=== PATIENT | female | born 1985 | race Caucasian/White ===

== ENCOUNTER 2023-01-30 08:47 | Day surgery (SDC) | payer OTHER, SELFPAY ==
[2023-01-30] VITALS (13 sets, daily range): BP systolic 111–139; BP diastolic 74–96; PULSE 63–82; RESP 16–20; TEMP 36.1–36.7; O2SAT 97–100; BMI 25.9
[2023-01-30] MEDS: SODIUM CHLORIDE 0.9 % (FLUSH) 10 ML SYRINGE IVF (09:33)
[2023-01-30] MEDS: LACTATED RINGERS 1000 ML 1,000 ML 100 ML IV (09:33)
[2023-01-30] MEDS: OXYMETAZOLINE (AFRIN) SOAK 1 EACH TOPICAL (09:34)
--- NOTE | 2023-01-30 10:10 | W.ANESCHARGE ---
Anesthesia Charges Start Date/Time Anesthesia Start Date: 01/30/23 Anesthesia Start Time: 10:41 Stop Date/Time Anesthesia Stop Date: 01/30/23 Anesthesia Stop Time: 11:14
[2023-01-30] MEDS: COCAINE HCL 4 % 4 ML SOLUTION NOSTRIL-B (10:50)
[2023-01-30] MEDS: AYR SALINE NASAL GEL 1 APPLIC NOSTRIL-B (10:52)
[2023-01-30] MEDS: BUPIVACAINE 0.5 %/EPI 1:200K 30 ML INJECTION (10:52)
--- NOTE | 2023-01-30 11:05 | W.PM.ENTPROC ---
Procedure Note Date of procedure: 01/30/23 Procedure: Preoperative diagnosis nasal obstruction, inferior turbinate hypertrophy, uvular hypertrophy causing gagging Postoperative diagnosis same Procedure trim uvula, submucous partial resection inferior turbinates Under general trach anesthesia patient was prepped and draped in usual fashion nose decongested and the inferior turbinates injected. The McIvor mouth gag was inserted the tongue retracted forward. The membranous portion of the uvula was amputated with a needlepoint cautery. After regarding attention was turned to the nose. The in a stab incision was made in the anterior head of the right inferior turbinate and a tunnel created with a Miesha dissector. The ruiz bone was outfractured and conservative anterior submucous resection performed. The Coblation Wand was used for hemostasis and to cauterize along the inferior 10%. This was repeated on the left side in identical fashion. Cotton balls were placed in the nose on each side. The patient procedure well was taken recovery in satisfactory condition. Blood loss was less than 10 mL. Surgeon: Alejo Connors MD
--- NOTE | 2023-01-30 11:14 | W.ANESCHARGE ---
Anesthesia Charges Start Date/Time Anesthesia Start Date: 01/30/23 Anesthesia Start Time: 10:41 Stop Date/Time Anesthesia Stop Date: 01/30/23 Anesthesia Stop Time: 11:14
--- NOTE | 2023-01-30 11:46 | SUR.PHASEI ---
patient met discharge criteria per anesthesia
[2023-01-30] MEDS: IBUPROFEN 200 MG TABLET PO ×2 (11:53)
[2023-01-30] MEDS: ACETAMINOPHEN 325 MG TABLET PO ×2 (11:53→11:58)
[2023-01-30] MEDS: OXYCODONE 5 MG TABLET PO (12:12)
== END 2023-01-30 13:00 | disposition home or self-care (01) ==
LOC: OR 08:51
PROVIDERS: Visit Provider Otolaryngology
PROC: (CPT 30520; principal; 2023-01-30 10:15)
PROC: (CPT 42140; 2023-01-30 10:15)
DX: J34.3 Hypertrophy of nasal turbinates (principal); J34.89 Other specified disorders of nose and nasal sinuses; K13.79 Other lesions of oral mucosa
CPT/HCPCS: 42140; 30140; 160; 170; 81025; A9270; J0330; J1100; J2250; J2405; J2704; J3010; J3490; J7120

== ENCOUNTER 2024-04-13 08:18 | Emergency (ER) | payer OTHER, SELFPAY ==
--- OUTSIDE RECORDS SUMMARY | 2024-04-13 08:20 | XMS_ITS | Referral Summary ---
Author Organization [place] Address [address] [place] [id number] Care Team Providers Care Water Chemist Name Role Phone [facility] Unavailable Allergies No known active allergies Medications valACYclovir (VALTREX) 1000 MG tabletIndicatio ns:Herpes simplex virus infection [VALACYCLOVIR (VALTREX) 1000 MG TABLET] TAKE TWO TABLETS BY MOUTH TWICE DAILY FOR 2 DAYS 8 tablet 11 1 Active desvenlafaxine (PRISTIQ) 50 MG 24 hr tablet Take 50 mg by mouth daily 1 Active amoxicillin-cla vulanate (AUGMENTIN) 875-125 MG tablet Take 1 tablet every 12 hours by oral route for 7 days. 2 Active azithromycin (ZITHROMAX) 250 MG tablet azithromycin 250 mg tablet Take 2 tablets (500 mg) by mouth daily for 1 day, THEN 1 tablet (250 mg) daily for 4 days. 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 Plan: cotest in 3 years 04/28/21 NIL pap, +HR HPV (not 16/18). Plan: cotest in 1 year 05/08/21 Mychart results sent 05/15/21 Result letter sent 10/27/21 NIL Pap, Neg HR HPV Plan cotest in 3 years. Resolved Problems Problem Noted Date Diagnosed Date Resolved Date Vasospasm 10/10/2020 10/10/2020 Encounter for IUD insertion 10/02/2018 08/26/2019 (normal spontaneous vaginal delivery) 08/22/2018 10/06/2018 08/21/2018 10/06/2018 test positive 12/25/201709/16 Immunizations Name Administration Dates Next Due COVID-19 Bivalent 12+ (Pfizer) 03/16/2022 Flu, Unspecified 03/01/2021, 0,04/06/2019,2017,03/11/2017 Influenza Vaccine >6 months,quad, PF ,03/01/2021,03/09/2020,2018,03/07/2018,03/11/2017 TDAP (Adacel,Boostrix) 07/12/2021,06/18/2018 TDAP Vaccine (Boostrix) 06/18/2018 Social History Tobacco Use Types Packs/Day Years Used Date Smoking Tobacco: Never Smokeless Tobacco: Never Alcohol Use Standard Drinks/Week Comments Yes 4 (1 standard drink = 0.6 oz pur e alcohol) 7 drinks per week PHQ-2 Answer Date Recorded PHQ-2 Score 1 09/28/2021 [place] Depression Scale Answer Date Recorded [place] Depression Score 6 09/28/2021 Last EPDS Self Harm Result Not on file 09/28 Adolescent Education Answer Date Record ed Getting School Help Needed Not on file 03/09 Comments No Sex and Gender Information Value Date Recorded Sex Assigned at Not on file Legal Sex Female 7:28 AM CDT Gender Identity Not on file Sexual Orientation Not on file Last Filed Vital Signs Vital Sign Reading Time Taken Comments Blood Pressure 111/80 12/29/2022 11:15 AM CDT Pulse 70 12/29/2022 11:15 AM CDT Temperature 36.3 ??C (97.3 ??F) 12/29/2022 9:58 AM CD T Respiratory Rate 15 12/29/2022 11:15 AM CDT Oxygen Saturation 98% 12/29/2022 11:15 AM CDT Inhaled Oxygen Concentration - - Weight 65.8 kg (145 lb) 12/29/2022 9:55 AM CDT Height 157.5 cm (5' 2) 12/29/2022 9:55 AM CDT Body Mass Index 26.52 12/29/2022 9:55 AM CDT Plan of Treatment Not on file Medical Devices Implanted Type Area Retail Client Solutions Analyst Device Identifier Shelf Expiration Date Model / Serial / Lot Sling Y Mesh Restorelle Contour 3x24cm [id number] - [id number] Implanted:Qty: 1 on 11/08/2021 by Aneesh Anguiano MD at [facility] Mesh N/A: Pelvis COLOPLAST [id number] 06/01/2024 [id number] / / [id number] Procedures Procedure Name Priority Date/Time Associated Diagnosis Comments BASIC METABOLIC PANEL STAT 12/29/2022 11:18 AM CDT HPV HIGH RISK TYPES DNA CERVICAL Routine 10/27/2021 11:15 AM CDT Routine follow-up GYNECOLOGIC CYTOLOGY Routine 10/27/2021 11:15 AM CDT Routine follow-up HIV ANTIGEN ANTIBODY COMBO Routine 03/01/2021 3:48 PM CDT Encounter for supervision of other normal in first trimester HEPATITIS C ANTIBODY Routine 02/07/2018 4:37 PM CDT from Last 3 Months or Most Recently Relevant to Health Maintenance Results * Basic metabolic panel (12/29/2022 11:18 AM CDT) Sodium 137 136 - 145 mmol/L 12/29/2022 12:00 PM CDT LABORATORY Potassium 4.0 3.4 - 5.3 mmol/L 12/29/2022 12:00 PM CDT LABORATORY Chloride 104 98 - 107 mmol/L 12/29/2022 12:00 PM CDT LABORATORY Carbon Dioxide (CO2) 23 22 - 29 mmol/L 12/29/2022 12:00 PM CDT LABORATORY Anion Gap 10 7 - 15 mmol/L 12/29/2022 12:00 PM CDT LABORATORY Urea Nitrogen 11.0 6.0 - 20.0 mg/dL 12/29/2022 12:00 PM CDT LABORATORY Creatinine 0.81 0.51 - 0.95 mg/dL 12/29/2022 12:00 PM CDT LABORATORY Calcium 9.0 8.6 - 10.0 mg/dL 12/29/2022 12:00 PM CDT LABORATORY Glucose 98 70 - 99 mg/dL 12/29/2022 12:00 PM CDT LABORATORY GFR Estimate >90 >60 mL/min/1.7 3m2 12/29/2022 12:00 PM CDT LABORATORY Blood STRUCTURE OF RIGHT UPPER LIMB / Unknown Venipuncture / Unknown 12/29/2022 11:18 AM CDT 12/29/2022 11:28 AM CDT us Lalito Mackenzie MD LAB - BLOOD ORDERABLES Final Result LABORATORY [facility] [address] Lab (1st floor, no room number) [place] [address], [facility] [phone] * Pap screen with HPV - recommended age 30 - 65 years (10/27/2021 11:15 AM CDT) Interpretation Negative for Intraepithelial Lesion or Malignancy (NILM) 11/06/2021 1:57 PM CDT [facility] Comment Papanicolaou Test Limitations: Cervical cytology is a screening test with limited sensitivity, and regular screening is critical for cancer prevention. Pap tests are primarily effective for the diagnosis/prevent ion of squamous cell carcinoma, not adenocarcinoma or other cancers. 11/06/2021 1:57 PM CDT [facility] Specimen Adequacy Satisfactory for evaluation, endocervical/dominguez sformation zone component present 11/06/2021 1:57 PM CDT [facility] Clinical Information post- 11/06/2021 1:57 PM CDT [facility] Reflex Testing Yes regardless of result 11/06/2021 1:57 PM CDT [facility] Previous Abnormal? Yes 11/06/2021 1:57 PM CDT [facility] Previous Abnormal Diagnosis 10/03, +HPV 11/06/2021 1:57 PM CDT [facility] Performing Labs The technical component of this testing was completed at [facility] 11/06/2021 1:57 PM CDT [facility] Brushing CERVIX UTERI STRUCTURE / Unknown 10/27/2021 11:15 AM CDT 10/27/2021 11:58 AM CDT us Lakeisha OTT - GARRETT RODARTE Final Result [facility] [address] [phone] * HPV High Risk Types DNA Cervical (10/27/2021 11:15 AM CDT) Other HR HPV Negative Negative 10/31/2021 3:49 PM CDT [facility] HPV16 DNA Negative Negative 10/31/2021 3:49 PM CDT [facility] HPV18 DNA Negative Negative 10/31/2021 3:49 PM CDT [facility] FINAL DIAGNOSIS This patient's sample is negative for HPV DNA. This test was developed and its performance characteristics determined by the [facility]. It has not been cleared or approved by the FDA. The laboratory is regulated under CLIA as qualified to perform high-complexity testing. This test is used for clinical purposes. It should not be regarded as investigational or for research. METHODOLOGY: The Dolores Champ 4800 system uses automated extraction, simultaneous amplification of HPV (L1 region) and beta-globin, followed by real time detection of fluorescent labeled HPV and beta globin using specific oligonucleotide probes. The test specifically identified types HPV 16 DNA and HPV 18 DNA while concurrently detecting the rest of the high risk types (31, 33, 35, 39, 45, 51, 52, 56, 58, 59, 66 or 68). COMMENTS: This test is not intended for use as a screening device for woman under age 30 with normal cervical cytology. Results should be correlated with cytologic and histologic findings. Close clinical followup is recommended. 10/31/2021 3:49 PM [facility] Brushing CERVIX UTERI STRUCTURE / Unknown Non-blood Collection / Unknown 10/27/2021 11:15 AM CDT 10/30/2021 8:28 AM CDT Lakeisha Terry MD LAB - BLOOD ORDERABLES Final R esult [facility] [address] [facility], [address] [address], [facility] [phone] * HIV Antigen Antibody Combo (03/01/2021 3:48 PM CDT) HIV Antigen Antibody Combo Negative Negative 03/01/2021 11:47 PM CDT [facility] Blood STRUCTURE OF LEFT UPPER LIMB / Unknown Venipuncture / Unknown 03/01/2021 3:48 PM CDT 03/01/2021 3:57 PM CDT Lakeisha Terry MD LAB - BLOOD ORDERABLES Final R esult [facility] [address] [address], [facility] [phone] * Hepatitis C antibody (02/07/2018 4:37 PM CDT) Hepatitis C Antibody Negative Negative 02/10/2018 8:05 AM CDT [facility] Blood specimen (specimen) Venipuncture / Unknown 02/07/2018 4:37 PM CDT 02/07/2018 7:28 PM CDT Lakeisha Terry MD LAB - BLOOD ORDERABLES Final R esult Performing Organization Address City/State/[facility] Co de Phone Number [facility] [address] [address], [facility] [address] [address] from Last 3 Months or Most Recently Relevant to Health Maintenance Insurance [facility] CHO[facility] CHO[facility] Advance Directives For more information, please contact: [phone] * Full Code (Latest Code Status on File) Date Activated Date Inactivated Comments 09/10/2021 1:09 PM 09/11/2021 3:16 PM All basic an d advanced life-sustaining interventions are performed as appropriate Question Answer Comments Code status determined by: Discussion with patie nt/ legal decision maker * Full Code Date Activated Date Inactivated Comments 09/09/2021 5:47 PM 09/10/2021 1:09 PM All basic an d advanced life-sustaining interventions are performed as appropriate Question Answer Comments Code status determined by: Unable to det ermine; FULL CODE until documents or legal decision maker available Care Teams Water Chemist Relationship Specialty Start Date End Date [facility] - [address], [address] [address] Assigned PCP 07/11/23
--- OUTSIDE RECORDS SUMMARY | 2024-04-13 08:20 | XMS_ITS | Clinical Summary ---
Author Organization [place] Address [address] [place] [address] Care Team Providers Care Ladle Handler Name Role Phone [facility] Unavailable Allergies No known active allergies Medications [...] TDAP (Adacel,Boostrix) 07/12/2021,06/18/2018 TDAP Vaccine (Boostrix) 06/18/2018 Family History Medical History Relation Comments No Known Problems Brother No Known Problems Father Heart Disease Maternal Grandfather Other Cancer Maternal Grandfather Follicular lymphoma Coronary Artery Disease Maternal Grandmother Endometrial Cancer Maternal Grandmother Hypothyroidism Maternal Grandmother Other Cancer Maternal Grandmother Endometrial Thyroid Disease Maternal Grandmother Hypothyroid Hypothyroidism Mother Thyroid Disease Mother Hypothyroid Cancer Paternal Grandmother No Known Problems Sister Relation Status Comments Brother Alive Father Alive Maternal Grandfather Alive Maternal Grandmother Alive Mother Alive Paternal Grandfather (Age 30) Paternal Grandmother Alive Sister Alive Social History Tobacco Use Types Packs/Day Years Used Date Smoking Tobacco: Never Smokeless Tobacco: Never Alcohol Use Standard Drinks/Week Comments Yes 4 (1 standard drink = 0.6 oz pur e alcohol) 7 drinks per week PHQ-2 Answer Date Recorded PHQ-2 Score 1 09/28/2021 [place] Depression Scale Answer Date Recorded [place] Depression Score 6 09/28/2021 Last EPDS Self [...] 12/29/2022 9:55 AM CDT Plan of Treatment Health Maintenance Due Date Last Done Comments ANNUAL REVIEW OF HM ORDERS 1986 HEPATITIS B IMMUNIZATION (1 of 3 - 19+ 3-dose series) 2005 PHQ-2 (once per calendar year) 2023 09/28/2021, 08/09/2020, 08/09/2020, Additional history exists YEARLY PREVENTIVE VISIT 09/27/2023 09/27/19, 03/09/2020, 03/09/2020, Additional history exists COVID-19 Vaccine ( season) 2024 03/16/2022, 03/21/2021, 06/24/2020, Additional history exists INFLUENZA VACCINE (#1) 2024 , 03/01/2021, 03/01/2021, Additional history exists HPV FOLLOW-UP 10/27/2024 10/27/2021, 04/17, 03/18/2020, Additional history exists PAP FOLLOW-UP 10/27/2024 10/27/2021, 04/17, 03/18/2020, Additional history exists GLUCOSE 12/29/2025 12/29/2022, 09/2021, 03/09/2020, Additional history exists ADVANCE CARE PLANNING 10/27/2026 10/27/2021 DTAP/TDAP/TD IMMUNIZATION (4 - Td or Tdap) 07/12/2031 07/12/2021, 06/18/2018, 06/18/2018 RSV VACCINE (1 - 1-dose 75+ series) 2061 HEPATITIS C SCREENING Completed 02/07/2018 HIV SCREENING Completed 03/01/2021, 02/07/2018 PAP Discontinued 10/27/2021, 04/17, 03/18/2020, Additional history exists HPV IMMUNIZATION Aged Out No longer e ligible based on patient's age to complete this topic MENINGITIS IMMUNIZATION Aged Out No l onger eligible based on patient's age to complete this topic Pneumococcal Vaccine: Pediatrics (0 to 5 Years) and At-Risk Patients (6 to 64 Years) Aged Out No longer eligible based on patient's age to complete this topic RSV MONOCLONAL ANTIBODY Aged Out No l onger eligible based on patient's age to complete this topic Medical Devices Implanted Type Area Hand Lacer Device Identifier Shelf Expiration Date Model / Serial / Lot Sling Y Mesh Restorelle Contour 3x24cm [id number] - [id number] Implanted:Qty: 1 on 11/08/2021 by Aneesh Anguiano MD at [facility] Mesh N/A: Pelvis COLOPLAST [id number] 06/01/2024 [id number] / / [id number] Procedures Procedure Name Priority Date/Time Associated Diagnosis [...] - 145 mmol/L 12/29/2022 12:00 PM CDT [facility] Potassium 4.0 3.4 - 5.3 mmol/L 12/29/2022 12:00 PM CDT [facility] Chloride 104 98 - 107 mmol/L 12/29/2022 12:00 PM CDT [facility] Carbon Dioxide (CO2) 23 22 - 29 mmol/L 12/29/2022 12:00 PM CDT [facility] Anion Gap 10 7 - 15 mmol/L 12/29/2022 12:00 PM CDT [facility] Urea Nitrogen 11.0 6.0 - 20.0 mg/dL 12/29/2022 12:00 PM CDT [facility] Creatinine 0.81 0.51 - 0.95 mg/dL 12/29/2022 12:00 PM CDT [facility] Calcium 9.0 8.6 - 10.0 mg/dL 12/29/2022 12:00 PM CDT [facility] Glucose 98 70 - 99 mg/dL 12/29/2022 12:00 PM CDT [facility] GFR Estimate >90 >60 mL/min/1.7 3m2 12/29/2022 12:00 PM CDT [facility] Blood STRUCTURE OF RIGHT UPPER LIMB / Unknown Venipuncture / Unknown 12/29/2022 11:18 AM CDT 12/29/2022 11:28 AM CDT us Lalito Mackenzie MD LAB - BLOOD ORDERABLES Final Result LABORATORY [facility] [address] Lab (1st floor, no room number) [place] [address], [facility] [phone] * Pap screen with HPV - recommended [...] component of this testing was completed at [facility] 11/06/2021 1:57 PM CDT [facility] Brushing CERVIX UTERI STRUCTURE / Unknown 10/27/2021 11:15 AM CDT 10/27/2021 11:58 AM CDT us Lakeisha Terry MD LAB - BEAKER AP Final Result [facility] [address] [place] [address], [facility] [phone] * HPV High Risk Types DNA Cervical (10/27/2021 11:15 AM CDT) Other HR HPV Negative Negative 10/31/2021 3:49 PM CDT [facility] HPV16 DNA Negative Negative 10/31/2021 3:49 PM CDT [facility] HPV18 DNA Negative Negative 10/31/2021 3:49 PM [facility]T [facility] FINAL DIAGNOSIS This patient's sample is negative for HPV DNA. This test was developed and its performance characteristics determined by the [facility], [facility]. It has not been [...] followup is recommended. 10/31/2021 3:49 PM CDT [facility] Brushing CERVIX UTERI STRUCTURE / Unknown Non-blood Collection / Unknown 10/27/2021 11:15 AM CDT 10/30/2021 8:28 AM CDT us Lakeisha Terry MD LAB - BLOOD ORDERABLES Final R esult [facility] [employer] [facility] [address] [facility], Room [address] [place] [address], [facility] [phone] * HIV Antigen Antibody Combo (03/01/2021 3:48 PM CDT) Pathologist [facility] HIV Antigen Antibody Combo Negative Negative 03/01/2021 11:47 PM CDT [facility] Blood STRUCTURE OF LEFT UPPER LIMB / Unknown Venipuncture / Unknown 03/01/2021 3:48 PM CDT 03/01/2021 3:57 PM CDT us Lakeisha Terry MD LAB - BLOOD ORDERABLES Final R esult Performing Organization Address City/[facility]/ZIP Co de Phone Number [facility] [address] [address], [facility] [phone] * Hepatitis C antibody (02/07/2018 4:37 PM CDT) [facility] Hepatitis C Antibody Negative Negative 02/10/2018 8:05 AM CDT [facility] Blood specimen (specimen) Venipuncture / Unknown 02/07/2018 4:37 PM CDT 02/07/2018 7:28 PM CDT us Lakeisha Terry MD LAB - BLOOD ORDERABLES Final R esult Performing Organization Address [facility] Co de Phone Number [facility] [address] [address], [facility] [address] [place] [address] from Last 3 Months or Most Recently Relevant to Health Maintenance Insurance [facility] CHOICE [id number] [id number] [facility] CHOICE Advance Directives For more information, please contact: [phone] * Full Code (Latest Code Status on [...] or legal decision maker available Care Teams Ladle Handler Relationship Specialty Start Date End Date [facility] - [address], [address] [facility] [place], [place] [id number] Assigned PCP 07/11/23
--- OUTSIDE RECORDS SUMMARY | 2024-04-13 08:21 | XMS_ITS | Encounter Summary ---
Author Organization [place] Address [address] [place] [address] Care Team Providers Care Condenser Tube Tender Name Role Phone Lakeisha Terry MD Primary Care Provider Unavail able Lakeisha Terry MD Unavailable Unavailable Kelle Espinoza MD Unavailable Unavaila Kelle Salas MD Unavailable [phone] Neelam Lunsford MD Unavailable [phone] Lakeisha Terry MD Unavailable Unavailable Lakeisha Terry MD Unavailable Unavailable [facility] Unavailable Encounter Details Date Type Department Care Team (Late st Contact Info) Description 01/17/2021 [facility] [address] [place] [address] Lakeisha Terry MD XXX NO LONGER WITH [facility] CANNOT LOCATE XXX Social History Tobacco Use Types Packs/Day Years Used Date Smoking Tobacco: Never Smokeless Tobacco: Never Alcohol Use Standard Drinks/Week Comments Yes 4 (1 standard drink = 0.6 oz pur e alcohol) PHQ-2 Answer Date Recorded PHQ-2 Score 0 08/09/2020 Comments Unknown Sex and Gender Information Value Date Recorded Sex Assigned at Not on file Legal Sex Female 7:28 AM CDT Gender Identity Not on file Sexual Orientation Not on file documented as of this encounter Plan of Treatment Not on file documented as of this encounter Visit Diagnoses Not on filedocumented in this encounter Additional Health Concerns Infection Onset Date Last Indicated Resolved Time Rule Out COVID-19 05/02/2021 05/02/2021 05/02/2021 8:03 PM SLUG PRESS OPERATOR Rule Out COVID-19 06/28/2021 06/28/2021 06/28/2021 11:19 PM SLUG PRESS OPERATOR COVID-19 06/28/2021 06/28/2021 07/19/2021 11:3 9 PM SLUG PRESS OPERATOR Assessment Noted Time PHQ-9 Depression Total Score: 0 11/11/19 5:01 PM CDT documented as of this encounter Care Teams Condenser Tube Tender Relationship Specialty Start Date End Date Lakeisha Terry MD PCP - General Family Medicine 04/30/20 07/18/23 Lakeisha Terry MD XXX NO LONGER WITH [facility] CANNOT LOCATE XXX Assigned PCP 11/30/20 03/02/22 Kelle Espinoza MD Assigned OBGYN Provider 04/30/21 08/19/21 Kelle Disla MD [address] [place] [address] Assigned OBGYN Provider 08/20/21 Neelam Lunsford MD [address] [place] [address] Assigned PCP 03/03/22 02/01/23 Lakeisha Terry MD XXX NO LONGER WITH [facility] CANNOT LOCATE XXX Assigned PCP 02/02/23 05/24/23 Lakeisha Terry MD XXX NO LONGER WITH [facility] CANNOT LOCATE XXX Assigned PCP 06/01/23 07/10/23 [facility] - [address], [address] [place] [address] Assigned PCP 07/11/23 documented as of this encounter
--- OUTSIDE RECORDS SUMMARY | 2024-04-13 08:21 | XMS_ITS | Encounter Summary ---
Author Organization [facility] Address [address] [place] [id number] Care Team Providers Care Injection Molding Machine Tender Name Role Phone Lakeisha Terry MD Primary Care Provider Unavail able Lakeisha Terry MD Primary Care Provider Unavail able Lakeisha Terry MD Unavailable Unavailable Kelle Espinoza MD Unavailable Unavaila Kelle Salas MD Unavailable [phone] Neelam Lunsford MD Unavailable [phone] Lakeisha Terry MD Unavailable Unavailable Lakeisha Terry MD Unavailable Unavailable Clinic - [facility] [place] Unavailable Encounter Details Date Type Department Care Team (Late st Contact Info) Description 10/21/2018 Records - [facility] Midwifery [address] [place] [id number] Waleska Knight [address] [place] [id number] Social History Tobacco Use Types Packs/Day Years Used Date Smoking Tobacco: Never Assessed Comments Unknown Sex and Gender Information Value Date Recorded Sex Assigned at Not on file Legal Sex Female 7:28 AM CDT Gender Identity Not on file Sexual Orientation Not on file documented as of this encounter Last Filed Vital Signs Vital Sign Reading Time Taken Comments Blood Pressure - - Pulse - - Temperature - - Respiratory Rate - - Oxygen Saturation - - Inhaled Oxygen Concentration - - Weight 70.6 kg (155 lb 9.6 oz) 10/21/2018 8:52 A M CDT Height 157.5 cm (5' 2) 10/21/2018 8:52 AM CDT Body Mass Index 28.46 10/21/2018 8:52 AM CDT documented in this encounter Progress Notes * Waleska KnightALEXEYSury - 10/21/2018 9:00 AM CDT Assessment: 1. 9 week old infant gaining weight very well on exclusive (1 oz/day over last 2 weeks) 2. Multifactorial nipple pain: Baby with tendency to draw lower lip in during feedings, vasospasm with incomplete relief from Vitamin B6, ? Possible yeast 3. Good milk transfer 4. Good milk supply Plan: 1. Discussed attaining optimal latch: To present breast in the sandwich hold, compressing breast vertically and in line with baby's mouth, for baby to get a larger mouthful of breast and a deeper latch. Use a finger to flip out his lower lip if needed as well. If there is feel pinching or pain, stop, use a finger to break the suction, remove baby from the breast and try again until there is no p ain with nursing. There is sometimes a little pain when the baby first begins sucking, but after the first few seconds there should be no pain--only a tugging feeling. Do not continue with the same position if nursing is painful; Always restart! 2. Make certain to be well-positioned for nursing, with feet elevated and Nghia up high enough to get enough breast in his mouth to have a deep latch. 3. Use All-Purpose Nipple Ointment after nursing sessions. Rx transmitted to pharmacy, and given written info. 4. Try nifedipine for two weeks for nipple vasospasm--Rx for 30 mg sustained release tab once dailyX 2 weeks sent to pharmacy. 5. See Dr. Terry tomorrow as planned, and will follow up by [facility] to re-assess. Subjective: Anel is here today for a follow up visit for nipple pain. At first visit about a month ago diagnosed with likely nipple vasospasm and used Vitamin B6 which was initiallyvery helpful, however in last 2 days has become much worse again. Is somewhat painful during nursing, but last night pain was so intense after completion of nursing session that she required ibuprofen to manage pain. Ibuprofen did give relief. Heat is helpful Also notes that nipples are bright pink, sometimes have lipstick appearance and look a little purplish. Additionally, did have a period of time few daysago where, during a trip where she did more pumping/bottling, baby refused the breast for 2 days, bu t that is now resolved. Goals: Continued exclusive Previous Experience: none Infants name: Nghia Lazaro's bday: [birth year] Gestational age: 38w6d Infant's weight: 8# 4 oz Mode of delivery: vaginal Infants MD: Dr. Terry Discharge weight: 7# 13 oz; Last weight at visit 9# 12.2 oz Frequency and duration of feedings: every 1-5 hours, for 10 Swallows audible per mother: yes Numbers of feedings in 24 hours: 6 Number urines per day: 12 Number of stools per day and their color: 2-4, large, green, yellow or brown Supplementation: none Pumping: about once daily for convenience, obtains 2-5 oz depending on timing of pumping Objective/Physical exam: Mother: Noticed breasts grew larger and areolas darkened during and she noticed primary engorgement when her milk came in. Her nipples are everted, the areola is compressible, the breast is soft and full. Sore nipples: yes EPDS: not completed today Assessment of : 45.91% Weight for age percentile Age today: 9 1/2 weeks Today's weight: 9# 12.2 oz Amount of milk transferred from LEFT side: 1.2 oz Amount of milk transferred from RIGHT side: 1.6 oz Baby has full flexion of arms and legs, normal tone, behavior is alert and active, respirations arenormal, skin is normal, hydration is normal, jaw is normal size and alignment, palate is normal, frenulum is normal, baby can lateralize tongue, has adequate tongue lift, and tongue can protrude tongue past bottom gum line. Baby thrush: none Jaundice: none Feeding assessment: Baby can hold suction with tongue while at the breast Alignment: The baby was flex relaxed. Baby's head was aligned with its trunk. Baby did face mother.Baby was in cross cradle position today. Areolar Grasp: Baby was able to open mouth somewhat widely. Baby's lips were not pursed. Baby's lower lip did not initially flange outward on first breast--gentle pressure on chin used to bring lip outwards. Tongue was not clearly visible just barely over bottom lip. Baby had complete seal. Areolar Compression: Baby made rhythmic motion. There were no clicking or smacking sounds. There was no severe nipple discomfort. Nipples appeared rounded after feeding. Both nipples appeared bright pink after feeding, and left nipple with a few raised dots. Also a little bit of purplish spots of discoloration noted. Audible swallowing: Baby made quiet sounds of swallowing: There was an increase in frequency after milk ejection reflex. The milk ejection reflex is normal and milk supply is normal. Current Outpatient Medications: ??? cyanocobalamin 100 MCG tablet, Take 100 mcg by mouth daily., Disp: , Rfl: ??? lanolin (LANSINOH HPA) 100 % Oint, Apply as needed, Disp: , Rfl: 0 ??? vitamin iron-folic acid 27mg-0.8mg ( S) 27 mg iron- 800 mcg Tab tablet, Take 1tablet by mouth daily., Disp: , Rfl: Past Medical History: Diagnosis Date ??? Abnormal Pap smear of cervix ??? HPV (human papilloma virus) infection ??? Insomnia ??? (normal spontaneous vaginal delivery) 08/22/2018 Past Surgical History: Procedure Laterality Date ??? LASIK Bilateral ??? WISDOM TOOTH EXTRACTION Family History Problem Relation Age of Onset ??? Hypothyroidism Mother ??? No Medical Problems Father ??? No Medical Problems Sister ??? No Medical Problems Brother ??? Endometrial cancer Maternal Grandmother ??? Hypothyroidism Maternal Grandmother ??? Coronary artery disease Maternal Grandmother ??? Heart disease Maternal Grandfather ??? Cancer Paternal Grandmother BP 102/60 Pulse 60 Ht 5' 2 (1.575 m) Wt 155 lb 9.6 oz (70.6 kg) ? Yes BMI 28.46 kg/m?? TT 45 min >50% counseling and education Waleska Knight APRN, PIO, IBCLC documented in this encounter Miscellaneous Notes * Patient Instructions - HE - Waleska Knight CNM - 10/21/2018 9:00 AM CDT 1. Present breast in the sandwich hold, compressing breast vertically and in line with baby's mouth, for baby to get a larger mouthful of breast and a deeper latch. Use a finger to flip out his lower lip if needed as well. If there is feel pinching or pain, stop, use a finger to break the suction, remove baby from the breast and try again until there is no pain with nursing. There is sometimes a little pain when the baby first begins sucking, but after the first few seconds there should be nopain--only a tugging feeling. Do not continue with the same position if nursing is painful; Always restart! 2. Make certain to be well-positioned for nursing, with feet elevated and Nghia up high enough to get enough breast in his mouth to have a deep latch. 3. Use All-Purpose Nipple Ointment after nursing sessions. 4. Try nifedipine for two weeks for nipple vasospasm. 5. See Dr. Terry tomorrow as planned, and [facility]. All Purpose Nipple Ointment (APNO), adapted from Dr. Alexandru Feng's website Most 24 hour Ampulse stores are compounding pharmacies. 1-15 on this list are 24 hour [facility] stores. The cost can sometimes be between $90-$125. If you find that with your insurance it is unaffordable, *please let us know* and we can discuss an alternative! It can take up to 24 hours to make APNO. We call our nipple ointment ???all purpose?? since it contains ingredients that help deal with multiple causes or aggravating factors of sore nipples. ???Good medicine?? calls for the single ???right?? treatment for the ???right?? problem, true enough, but mothers with sore nipples don???t havetime to try out different treatments that may or may not work, so we have combined various treatments in one ointment. Of course, preventing sore nipples in the first place would be the best treatment and often adjusting how the baby takes the breast can do more than anything to decrease and eliminate the mother???s nipple soreness The APNO contains: Mupirocin 2% ointment. Mupirocin (Bactroban is the trade name) is an antibiotic that is effective against many bacteria, particularly Staphylococcus aureus including MRSA (methicillin resistant Staphylococcus aureus). Staphylococcus aureus is commonly found growing in abrasions or cracks in the nipples and probably makes worse whatever the initial cause of sore nipples is. Interestingly, mupirocin apparently has some effect against Sophie albicans (commonly called ???thrush?? or ???yeast?? ). Treatment of sore nipples with an antibiotic alone sometimes seems to work, but we feel that the antibiotic works best in combination with the other ingredients discussed below. Although mupirocin isabsorbed when taken by mouth, it is so quickly metabolized in the body that it is destroyed before blood levels can be measured. Moreover most of it gets stuck to the skin so that very little is taken in by the baby. Thus it is safe for the baby to swallow if indeed he gets any. Betamethasone 0.1% ointment. Betamethasone is a corticosteroid, which like all corticosteroids, decreases inflammation. A large part of the pain mothers experience when they have sore nipples is due to inflammation. The redness of the nipples and areolas is another sign of inflammation. By decreasing the inflammation, the APNO also decreases the pain the mother feels. Most of the betamethasone inthe ointment is absorbed into the skin by the mother, so that the baby takes in very little. Miconazole powder: Miconazole is an antifungal agent. It is very effective against Sophie albicans. We feel the concentration of 2% miconazole is a good one, but because the pharmacist adds a powderto the above two ingredients, s/he can change the concentration of miconazole so that it can be increased to 3% or even 4% or decreased to less than 2%. We feel 2% is the best concentration for most situations. Fluconazole powder to 2% may be substituted for miconazole and so can clotrimazole powder to 2%, but we believe that clotrimazole (Canesten) irritates more than the other drugs in the samefamily. Miconazole cream or gel cannot be substituted for miconazole powder as the compound will usually separate. If you live in a place where miconazole or any of the above mentioned drugs (fluconazole, clotrimazole) are not easily available as powders to be mixed into the APNO, it is probably better to use only the mupirocin and betamethasone ointments mixed together than add a cream or gel ornystatin ointment for example. By using a powder, the concentration of the other two ingredients is not as decreased as they wouldbe if another ointment were used for the anti-fungal agent (for example, nystatin ointment). Thus, in the above preparation the concentration of the betamethasone become 0.05% (due to combination with the mupirocin) and the mupirocin concentration is decreased to 1%. Note that nystatin ointment, which we used to use and which decreases the concentration of the other ingredients, is far inferior to miconazole and also tastes bad. NO SUBSTITUTIONS How do I use the ointment? Apply it sparingly after each feeding. ???Sparingly?? means that you apply just enough to make thenipples and areola glossy or shiny. Do not wash it off or wipe it off, even if the baby comes back to the breast earlier than expected. How long can I use the ointment? Somehow the ???word?? has gotten around to use the ointment for only two weeks. This is unfortunate since many mothers are getting so much better, but not pain free, by the time they believe they have to stop the ointment. Apparently pharmacists have said that the steroid in the ointment will cause ???thinning?? of the skin. This is a concern with any steroid one puts on the skin, but in our experience this has not occurred with our ointment and many mothers have used it for months. However, any drug should be used for the shortest period of time necessary, whether it???s taken bymouth or put on the skin or any other way it???s being given. The same is true for our ointment. There is no problem using the ointment for 2 or 3 or even more weeks, but if you still need the ointment after two or three weeks, or you pain returns after you have stopped it, you should get ???hands on?? help again to find out why and fix the way the baby is taking the breast, for example. Indeed,the most important feature of decreasing nipple pain is getting the best latch possible. Pres[facility] sent to: [facility] [place] [address] Phone Hours: Saturday- Saturday 9am- 5pm If the prescription All-Purpose Nipple Ointment is too expensive or difficult to obtain, you can use a lo-iw-xrrwdcok alternative with cvdo-rzs-xssgktc medications. Purchase: 1% hydrocortisone cream Antibiotic ointment (such as Bactroban or Bacitracin) Miconazole cream (an antifungal: Found with treatments for vaginal yeast, jock itch and athlete'sfoot) After each feeding, mix a dab of each in your palm and apply thinly to both nipples. You do not need to wash it off before the next feeding. After 2-3 days, you can stop including the hydrocortisone. Vasospasm and Raynaud???s Phenomenon by Dr. Alexandru Feng These conditions are due to a spasm of blood vessels preventing blood from getting to a particular area of the body, typically the end of an extremity, though not necessarily. They often occur in response to a drop in temperature. Raynaud???s phenomenon will occur in the fingers, for example, when someone goes outside from a warm house on a cool day. The fingers will turn white and the lack of blood getting to the tips of the fingers will cause pain. Raynaud???s phenomenon occurs more commonly in women than men, and can be often associated with ???auto-immune?? illnesses such as rheumatoid arthritis. Here, we will refer to both conditions as vasospasm. Vasospasm can also occur in nipples. In fact, it is much more common than generally believed. It can occur along with any cause of sore nipples, and is, in fact, probably a result of damage, but it may also, on occasion, occur without any other kind of nipple pain at all. Typically, vasospasm occurs after the feeding is over, once the baby is already off the breast. Presumably, the outside air is cooler than the inside of the baby???s mouth. When the baby comes off the breast, the nipple is its usual colour, but soon, within minutes or even seconds, the nipple will start to turn white. This is likely also due to drying of the nipple. Mothers generally describe a burning pain when the nipple turns white. After turning white for a while, the nipple may actually turn back to its normal colour (as blood starts to flow back to the nipple), and the mother will notice a throbbing pain. See the video clip of a mother???s nipple going from white to pink. The nipple may go back and forth between colours (and types of pain) for several minutes or even an hour or two.Sometimes, the mother does not even notice her nipple turning white and instead sees it change formpink to red to purple and back to pink again. That the nipple changes colour is not the concern; that the mother is in pain is a concern. Interestingly some mothers do not have pain with the vasospasm. The treatment for vasospasm is to fix the original cause of the pain (poor latch, Sophie). See theinformation sheets When Latching, Sophie Protocol and Sore Nipples as well as the video clips. Almost always, as the nipple soreness from another cause is getting better, so will the pain from the vasospasm, but more slowly. Fixing the original cause of the pain (improving the latch, treating Sophie etc) should be the focus of treatment. However, some mothers no longer have pain during the feeding, or never had it at all. Indeed, some start having vasospasm during the . If the pain is mild, there may be no reason to treat, and reassurance is all that is necessary. However, it is worth treating when the pain is distressing to the mother, and especially if the pain during the feeding does not improve, as severe restriction of blood supply to the nipple may delay healing. Treatments for Raynaud???s phenomenon (blanching of the nipple) Identify and Fix the original cause of the pain: i.e. Poor Latching and/or Sophie. Stop Air Drying of the nipples. When baby comes off the breast, immediately cover the nipple with your warm hand while you get your bra done up. After talking a shower, avoid going out of the shower enclosure until the breasts are completely covered and kept warmed so the cold air cannot reach the nipples. The All Purpose Nipple Ointment may also help for the soreness during the feeding, especially when ibuprofen powder has been mixed in. See the information sheets Sophie Protocol and All Purpose Nipple Ointment. [place] Oil Warming olive oil in mother???s fingers and then gently massaging the oil into the nipples during the burning may be very soothing. We have heard from many mothers that this gave them instant relief and seemed to decrease the occurrence of the vasospasm overall. It???s important that the oil be really massaged into the nipples and not just dabbed on Vitamin B6 Multi Complex. There have not yet been studies done to show that vitamin B6 works, but enough anecdotal evidence has come forward to support that it does work at least some of the time. Itis safe and will do no harm. It is best that B6 not be taken on its own but instead as part of a B complex of vitamins that includes niacin. Depending on the overall dose of the B complex, the amountof B6 itself should be approximately 100 mg 2x/day for at least a couple of weeks. So, for example,if the overall capsule is 125 mg of B complex and there is only 50 mg of B6 in that capsule, then mother would need to take 2 capsules at a time to equal one dose and that dose would need to be lcjci0i/day. The mother continues it until she is pain free for a few weeks. It can be restarted if necessary. If you have been pain free for a week or two, try going off the vitamin B6. If vitamin B6 does not work within a week, it probably won???t. Warm dry compresses can be very effective at stopping the vasospasm as it is occurring and for treating the pain. Lying down after a feeding and applying a heating pad to the breasts for a few minutes or more may help considerably. Certainly, it will allow mother to rest and this may help to deal with the pain, as well. Magnesium supplements with added Calcium taken as 2 teaspoons (300mg Magnesium/200 mg Calcium (gluconate), or taken separately: 2x daily or 300mg Magnesium 2x daily & 200mg of Calcium.) After working on the latch, possibly as effective as all of the above is the massaging of the chestmuscles which are below the collar bone and above the breasts after the feedings or at onset of nipple or breast pain. The massage should be very vigorous and firm and is done on the chest, not necessarily the breasts. The mother could also massage under the pectoral muscles, in her armpits, but this massage should be done gently. When this is not enough: Nifedipine. This is a drug used for hypertension. One 30 mg tablet of the slow release formulation once a day often takes away the pain of vasospasm. After two weeks, stop the medication. If pain returns (about 10% of mothers), start it again. After two weeks, stop the medication. If pain returns (a very small number of mothers), start it again. No mothers I am aware of took more than three, two week courses. Side effects are uncommon, but headache may occur. It is a prescription drug. The dosecan be increased if 1 tablet is insufficient. The nifedipine treatment may be used in conjunction with all of the other treatments listed above. Note: We no longer recommend nitroglycerin paste, as severe headache associated with its use is fairly common. It also does not work more than about 50% of the time. Vasospasm, 2009?? Written by Natalya Sarmiento, IBCLC, 2007?? Revised by Alexandru Feng MD, [facility] and KATYA MastCLC, 2007, 2008?? All of our information sheets may be copied and distributed without further permission on the condition that it is not used in ANY context that violates the WHO International Code on the Marketing of Breastmilk Substitutes (1981) and subsequent World Health Assembly resolutions. 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 Rule Out COVID-19 06/28/2021 06/28/2021 06/28/2021 11:19 PM STONE MILL OPERATOR COVID-19 06/28/2021 06/28/2021 07/19/2021 11:3 9 PM STONE MILL OPERATOR documented as of this encounter Care Teams Injection Molding Machine Tender Relationship Specialty Start Date End Date Lakeisha Terry MD PCP - General Family Medicine 04/30/20 07/18/23 Lakeisha Terry MD PCP - General 04/05/17 04/29/20 Lakeisha Terry MD XXX NO LONGER WITH [facility] CANNOT LOCATE XXX Assigned PCP 11/30/20 03/02/22 Kelle Espinoza MD Assigned OBGYN Provider 04/30/21 08/19/21 Kelle Disla MD [address] [address] Assigned OBGYN Provider 08/20/21 Neelam Lunsford MD [address] [facility] [address] [place] [address] Assigned PCP 03/03/22 02/01/23 Lakeisha Terry MD XXX NO LONGER WITH [facility] CANNOT LOCATE XXX Assigned PCP 02/02/23 05/24/23 Lakeisha Terry MD XXX NO LONGER WITH [facility] CANNOT LOCATE XXX Assigned PCP 06/01/23 07/10/[address], [address] [place] [address] Assigned PCP 07/11/23 documented as of this encounter
--- OUTSIDE RECORDS SUMMARY | 2024-04-13 08:21 | XMS_ITS | Encounter Summary ---
Author Organization [facility] Address [address] [place] [address] Care Team Providers Care Hatch Supervisor Name Role Phone Lakeisha Terry MD Primary Care Provider Unavail able Lakeisha Terry MD Unavailable Unavailable Kelle Espinoza MD Unavailable Unavaila Kelle Salas MD Unavailable [phone] Neelam Lunsford MD Unavailable [phone] Lakeisha Terry MD Unavailable Unavailable Lakeisha Terry MD Unavailable Unavailable [facility] Unavailable Encounter Details Date Type Department Care Team (Late st Contact Info) Description 01/27/2021 [facility] [address] [place] [address] Lakeisha Terry MD XXX NO [...] on file Sexual Orientation Not on file COVID-19 Exposure Response Date Recorded In the last month, have you been in contact with someone who was confirmed or suspected to have Coronavirus / COVID-19? No / Unsure 01/27/2021 10:19 AM CDT documented as of this encounter Plan of Treatment Not on file documented as of this encounter Visit Diagnoses Not on filedocumented in this encounter Additional Health Concerns Infection Onset Date Last Indicated Resolved Time Rule Out COVID-19 05/02/2021 05/02/2021 05/02/2021 8:03 PM RESERVATION SALES AGENT Rule Out COVID-19 06/28/2021 06/28/2021 06/28/2021 11:19 PM RESERVATION SALES AGENT COVID-19 06/28/2021 06/28/2021 07/19/2021 11:3 9 PM RESERVATION SALES AGENT Assessment Noted Time PHQ-9 Depression Total Score: 0 11/11/19 5:01 PM CDT documented as of this encounter Care Teams Hatch Supervisor Relationship Specialty Start Date End Date Lakeisha Terry MD PCP - General Family Medicine 04/30/20 07/18/23 Lakeisha Terry MD XXX NO LONGER WITH FV CANNOT LOCATE XXX Assigned PCP 11/30/20 03/02/22 Kelle Espinoza MD Assigned OBGYN Provider 04/30/21 08/19/21 Kelle Disla MD [address] [place] [address] Assigned OBGYN Provider 08/20/21 Neelam Lunsford MD [address] [place] [address] Assigned PCP 03/03/22 02/01/23 Lakeisha Terry MD XXX NO LONGER WITH FV CANNOT LOCATE XXX Assigned PCP 02/02/23 05/24/23 Lakeisha Terry MD XXX NO LONGER WITH FV CANNOT LOCATE XXX Assigned PCP 06/01/23 07/10/23 Clinic - [address], [address] [place] [address] Assigned PCP 07/11/23 documented as of this encounter
--- OUTSIDE RECORDS SUMMARY | 2024-04-13 08:21 | XMS_ITS | Encounter Summary ---
Author Organization [facility] Address [address] [place] [address] Care Team Providers Care Miner Name Role Phone Lakeisha Terry MD Primary Care Provider Unavail able Lakeisha Terry MD Unavailable Unavailable Kelle Espinoza MD Unavailable Unavaila Kelle Salas MD Unavailable [phone] Neelam Lunsford MD Unavailable [phone] Lakeisha Terry MD Unavailable Unavailable Lakeisha Terry MD Unavailable Unavailable [facility] Unavailable Encounter Details Date Type Department Care Team (Late st Contact Info) Description 08/14/2021 [facility] [place] [facility] [address] [place] [address] Lakeisha Terry MD XXX NO LONGER WITH FV CANNOT LOCATE XXX Social History Tobacco Use Types Packs/Day Years Used Date Smoking Tobacco: Never Smokeless Tobacco: Never Alcohol Use Standard Drinks/Week Comments Not Currently 4 (1 standard drink = 0.6 oz pur e alcohol) PHQ-2 Answer Date Recorded PHQ-2 Score 0 08/09/2020 Comments Yes Sex and Gender Information Value Date Recorded Sex Assigned at Not on file Legal Sex Female 7:28 AM CDT Gender Identity Not on file Sexual Orientation Not on file COVID-19 Exposure Response Date Recorded In the last month, have you been in contact with someone who was confirmed or suspected to have Coronavirus / COVID-19? No / Unsure 08/09/2021 10:23 AM CROSS CUT SAW OPERATOR documented as of this encounter Plan of Treatment Not on file documented as of this encounter Visit Diagnoses Not on filedocumented in this encounter Additional Health Concerns Assessment Noted Time PHQ-9 Depression Total Score: 0 11/11/19 5:01 PM CDT documented as of this encounter Care Teams Miner Relationship Specialty Start Date End Date Lakeisha Terry MD PCP - General Family Medicine 04/30/20 07/18/23 aLkeisha Terry MD XXX NO LONGER WITH FV CANNOT LOCATE XXX Assigned PCP 11/30/20 03/02/22 Kelle Espinoza MD Assigned OBGYN Provider 04/30/21 08/19/21 Kelle Disla MD [address] [place], [place] [address] Assigned OBGYN Provider 08/20/21 Neelam Lunsford MD [address] [place], [place] [address] Assigned PCP 03/03/22 02/01/23 Lakeisha Terry MD XXX NO LONGER WITH FV CANNOT LOCATE XXX Assigned PCP 02/02/23 05/24/23 Lakeisha Terry MD XXX NO LONGER WITH FV CANNOT LOCATE XXX Assigned PCP 06/01/23 07/10/23 Clinic - [address], [address] [place] [address] Assigned PCP 07/11/23 documented as of this encounter
--- OUTSIDE RECORDS SUMMARY | 2024-04-13 08:21 | XMS_ITS | Encounter Summary ---
Author Organization [facility] Address [address] [place] [address] Care Team Providers Care Greenskeeper Supervisor Name Role Phone Lakeisha Terry MD Primary Care Provider Unavail able Lakeisha Terry MD Unavailable Unavailable Kelle Disla MD Unavailable [phone] Neelam Lunsford MD Unavailable [phone] Lakeisha Terry MD Unavailable Unavailable Lakeisha Terry MD Unavailable Unavailable Clinic - [facility] Unavailable Encounter Details Date Type Department Care Team (Late st Contact Info) Description 11/06/2021 [facility] [address] [place] [phone] [facility] Social History Tobacco Use Types Packs/Day Years Used Date Smoking Tobacco: Never Smokeless Tobacco: Never Alcohol Use Standard Drinks/Week Comments Yes 4 (1 standard drink = 0.6 oz pur e alcohol) PHQ-2 Answer Date Recorded PHQ-2 Score 1 09/28/2021 [place] Depression Scale Answer Date Recorded [place] Depression Score 6 09/28/2021 Last EPDS Self Harm Result Not on file 09/28 Comments No Sex and Gender Information Value Date Recorded Sex Assigned at Not on file Legal Sex Female 7:28 AM CDT Gender Identity Not on file Sexual Orientation Not on file COVID-19 Exposure Response Date Recorded In the last 10 days, have yo u been in contact with someone who was confirmed or suspected to have Coronavirus/COVID-19? No / Unsure 11/08/2021 8:47 AM CDT documented as of this encounter Plan of Treatment Not on file documented as of this encounter Visit Diagnoses Not on filedocumented in this encounter Additional Health Concerns Assessment Noted Time PHQ-9 Depression Total Score: 0 11/11/19 5:01 PM CDT documented as of this encounter Care Teams Greenskeeper Supervisor Relationship Specialty Start Date End Date Lakeisha Terry MD PCP - General Family Medicine 04/30/20 07/18/23 Lakeisha Terry MD XXX NO LONGER WITH FV CANNOT LOCATE XXX Assigned PCP 11/30/20 03/02/22 Kelle Disla MD [address] [place] [address] Assigned OBGYN Provider 08/20/21 Neelam Lunsford MD [address] [place] [address] Assigned PCP 03/03/22 02/01/23 Lakeisha Terry MD XXX NO LONGER WITH FV CANNOT LOCATE XXX Assigned PCP 02/02/23 05/24/23 Lakeisha Terry MD XXX NO LONGER WITH FV CANNOT LOCATE XXX Assigned PCP 06/01/23 07/10/[address] [place] [address] Assigned PCP 07/11/23 documented as of this encounter
--- OUTSIDE RECORDS SUMMARY | 2024-04-13 08:21 | XMS_ITS | Encounter Summary ---
Author Organization [facility] Address [address] [place] [address] Care Team Providers Care Deal Architect Name Role Phone Lakeisha Terry MD Primary Care Provider Unavail able Lakeisha Terry MD Unavailable Unavailable Kelle Espinoza MD Unavailable Unavaila Kelle Salas MD Unavailable [phone] Neelam Lunsford MD Unavailable [phone] Lakeisha Teryr MD Unavailable Unavailable Lakeisha Terry MD Unavailable Unavailable [facility] - [facility] Unavailable Encounter Details Date Type Department Care Team (Late st Contact Info) Description 06/30/2021 [facility] [place] Medical Advice [facility] [place] [address] [facility] [address] [place] [phone] Magda Hadley, PT [address] [facility] [address] [place] [id number] Social History Tobacco Use Types Packs/Day Years [...] or suspected to have Coronavirus / COVID-19? Yes 06/16/2021 8:50 AM ROLLED GLASS CROSSCUTTER documented as of this encounter Plan of Treatment Not on file documented as of this encounter Visit Diagnoses Not on filedocumented in this encounter Additional Health Concerns Infection Onset Date Last Indicated Resolved Time COVID-19 06/28/2021 06/28/2021 07/19/2021 11:3 9 PM ROLLED GLASS CROSSCUTTER Assessment Noted Time PHQ-9 Depression Total Score: 0 11/11/19 5:01 PM CDT documented as of this encounter Care Teams Deal Architect Relationship Specialty Start Date End Date Lakeisha Terry MD PCP - General Family Medicine 04/30/20 07/18/23 Lakeisha Terry MD XXX NO LONGER WITH FV CANNOT LOCATE XXX Assigned PCP 11/30/20 03/02/22 Kelle Espinoza MD Assigned OBGYN Provider 04/30/21 08/19/21 Kelle Disla MD [address] [place] [address] Assigned OBGYN Provider 08/20/21 Neelam Lunsford MD [address] [place], [place] [address] Assigned PCP 03/03/22 02/01/23 Lakeisha Terry MD XXX NO LONGER WITH FV CANNOT LOCATE XXX Assigned PCP 02/02/23 05/24/23 Lakeisha Terry MD XXX NO LONGER WITH FV CANNOT LOCATE XXX Assigned PCP 06/01/23 07/10/23 [facility] - [address], [address] [place] [address] Assigned PCP 07/11/23 documented as of this encounter
--- OUTSIDE RECORDS SUMMARY | 2024-04-13 08:21 | XMS_ITS | Encounter Summary ---
Author Organization [facility] Address [address] [place] [address] Care Team Providers Care Sushi Chef Name Role Phone Lakeisha Terry MD Primary Care Provider Unavail able Lakeisha Terry MD Unavailable Unavailable Kelle Disla MD Unavailable [phone] Neelam Lunsford MD Unavailable [phone] Lakeisha Terry MD Unavailable Unavailable Lakeisha Terry MD Unavailable Unavailable [facility] Unavailable Encounter Details Date Type Department Care Team (Late st Contact Info) Description 11/01/2021 [facility] Medical Advice [facility] [address] [place] [address] Lakeisha Terry MD XXX NO LONGER WITH FV CANNOT LOCATE XXX Social History Tobacco Use Types Packs/Day Years Used Date Smoking Tobacco: Never Smokeless Tobacco: Never Alcohol Use Standard Drinks/Week Comments Yes 4 (1 standard drink = 0.6 oz pur e alcohol) PHQ-2 Answer Date Recorded PHQ-2 Score 1 09/28/2021 [place] Depression Scale Answer Date Recorded [place] Depression Score 6 09/28/2021 Last EPDS Self [...] suspected to have Coronavirus/COVID-19? No / Unsure 10/27/2021 10:13 AM CDT documented as of this encounter Plan of Treatment Not on file documented as of this encounter Visit Diagnoses Not on filedocumented in this encounter Additional Health Concerns Assessment Noted Time PHQ-9 Depression Total Score: 0 11/11/19 5:01 PM CDT documented as of this encounter Care Teams Sushi Chef Relationship Specialty Start Date End Date Lakeisha Terry MD PCP - General Family Medicine 04/30/20 07/18/23 Lakeisha Terry MD XXX NO LONGER WITH FV CANNOT LOCATE XXX Assigned PCP 11/30/20 03/02/22 Kelle Disla MD [address] [place] [address] Assigned OBGYN Provider 08/20/21 Neelam Lunsford MD [address] [place] [address] Assigned PCP 03/03/22 02/01/23 Lakeisha Terry MD XXX NO LONGER WITH FV CANNOT LOCATE XXX Assigned PCP 02/02/23 05/24/23 Lakeisha Terry MD XXX NO LONGER WITH FV CANNOT LOCATE XXX Assigned PCP 06/01/23 07/10/23 [facility] - [address], [address] [place], [place] [address] Assigned PCP 07/11/23 documented as of this encounter
--- OUTSIDE RECORDS SUMMARY | 2024-04-13 08:21 | XMS_ITS | Encounter Summary ---
Author Organization [facility] Address [address] [place] [address] Care Team Providers Care Event Technician Name Role Phone Lakeisha Terry MD Primary Care Provider Unavail able Lakeisha Terry MD Unavailable Unavailable Kelle Espinoza MD Unavailable Unavaila Kelle Saals MD Unavailable [phone] Neelam Lunsford MD Unavailable [phone] Lakeisha Terry MD Unavailable Unavailable Lakeisha Terry MD Unavailable Unavailable [facility] Unavailable Encounter Details Date Type Department Care Team (Late st Contact Info) Description 04/05/2021 [facility] Medical Advice [facility] [address] [place] [address] Lakeisha Terry MD XXX NO [...] have Coronavirus / COVID-19? No / Unsure 03/29/2021 2:24 PM CDT documented as of this encounter Plan of Treatment Not on file documented as of this encounter Visit Diagnoses Not on filedocumented in this encounter Additional Health Concerns Infection Onset Date Last Indicated Resolved Time Rule Out COVID-19 05/02/2021 05/02/2021 05/02/2021 8:03 PM TOOTH CLERK Rule Out COVID-19 06/28/2021 06/28/2021 06/28/2021 11:19 PM TOOTH CLERK COVID-19 06/28/2021 06/28/2021 07/19/2021 11:3 9 PM TOOTH CLERK Assessment Noted Time PHQ-9 Depression Total Score: 0 11/11/19 5:01 PM CDT documented as of this encounter Care Teams Event Technician Relationship Specialty Start Date End Date Lakeisha Terry MD PCP - General Family Medicine 04/30/20 07/18/23 Lakeisha Terry MD XXX NO LONGER WITH FV CANNOT LOCATE XXX Assigned PCP 11/30/20 03/02/22 Kelle Espinoza MD Assigned OBGYN Provider 04/30/21 08/19/21 Kelle Disla MD [address] [place] [address] Assigned OBGYN Provider 08/20/21 Neelam Lunsford MD [address] [place] [address] Assigned PCP 03/03/22 02/01/23 Lakeisha Terry MD XXX NO LONGER WITH FV CANNOT LOCATE XXX Assigned PCP 02/02/23 05/24/23 Lakeisha Terry MD XXX NO LONGER WITH FV CANNOT LOCATE XXX Assigned PCP 06/01/23 07/10/23 [facility] - [address], [address] [place] [address] Assigned PCP 07/11/23 documented as of this encounter
--- OUTSIDE RECORDS SUMMARY | 2024-04-13 08:21 | XMS_ITS | Encounter Summary ---
Author Organization [facility] Address [address] [place] [address] Care Team Providers Care Electric Mule Driver Name Role Phone Lakeisha Terry MD Primary Care Provider Unavail able Lakeisha Terry MD Unavailable Unavailable Kelle Espinoza MD Unavailable Unavaila Kelle Salas MD Unavailable [phone] Neelam Lunsford MD Unavailable [phone] Lakeisha Terry MD Unavailable Unavailable Lakeisha Terry MD Unavailable Unavailable [facility] Unavailable Encounter Details Date Type Department Care Team (Late st Contact Info) Description 07/26/2021 [facility] [address] [place] [address] Lakeisha Terry MD XXX NO [...] have Coronavirus / COVID-19? No / Unsure 07/26/2021 11:26 AM CONCRETE BUCKET UNLOADER documented as of this encounter Plan of Treatment Not on file documented as of this encounter Visit Diagnoses Not on filedocumented in this encounter Additional Health Concerns Assessment Noted Time PHQ-9 Depression Total Score: 0 11/11/19 5:01 PM CDT documented as of this encounter Care Teams Electric Mule Driver Relationship Specialty Start Date End Date Lakeisha Terry MD PCP - General Family Medicine 04/30/20 07/18/23 Lakeisha Terry MD XXX NO LONGER WITH FV CANNOT LOCATE XXX Assigned PCP 11/30/20 03/02/22 Kelle Espinoza MD Assigned OBGYN Provider 04/30/21 08/19/21 Kelle Disla MD [address] [place], [place] [address] Assigned OBGYN Provider 08/20/21 Neelam Lunsford MD [address] [place], [place] [address] Assigned PCP 03/03/22 02/01/23 Lakeisha Terry MD XXX NO LONGER WITH FV CANNOT LOCATE XXX Assigned PCP 02/02/23 05/24/23 Lakeisha Terry MD XXX NO LONGER WITH FV CANNOT LOCATE XXX Assigned PCP 06/01/23 07/10/23 Clinic - [address], [address] [place] [address] Assigned PCP 07/11/23 documented as of this encounter
--- OUTSIDE RECORDS SUMMARY | 2024-04-13 08:21 | XMS_ITS | Encounter Summary ---
Author Organization [facility] Address [address] [place] [address] Care Team Providers Care Window Installation Subcontractor Name Role Phone Lakeisha Terry MD Primary Care Provider Unavail able Lakeisha Terry MD Unavailable Unavailable Kelle Disla MD Unavailable Neelam Lunsford MD Unavailable [phone] Lakeisha Terry MD Unavailable Unavailable Lakeisha Terry MD Unavailable Unavailable [facility] Unavailable Encounter Details Date Type Department Care Team (Late st Contact Info) Description 09/28/2021 [facility] Medical [facility] [address] [facility] [address] [place] [address] Waleska Knight CNM [address] [place] [phone] Social History Tobacco Use Types Packs/Day Years Used Date Smoking Tobacco: Never Smokeless Tobacco: Never Alcohol Use Standard Drinks/Week Comments Yes 4 (1 standard drink = 0.6 oz pur e alcohol) PHQ-2 Answer Date Recorded PHQ-2 Score 1 09/28/2021 [place] Depression Scale Answer Date Recorded [place] Depression Score 6 09/28/2021 Last EPDS Self [...] suspected to have Coronavirus/COVID-19? No / Unsure 09/28/2021 8:08 AM CDT documented as of this encounter Miscellaneous Notes * Telephone Encounter - Gisselle Conrad RN - 10/03/2021 12:31 PM CDT Will route to the provider to review as FYI. Gisselle Riggs RN documented in this encounter Plan of Treatment Not on file documented as of this encounter Visit Diagnoses Not on filedocumented in this encounter Additional Health Concerns Assessment Noted Time PHQ-9 Depression Total Score: 0 11/11/19 5:01 PM CDT documented as of this encounter Care Teams Window Installation Subcontractor Relationship Specialty Start Date End Date Lakeisha Terry MD PCP - General Family Medicine 04/30/20 07/18/23 Lakeisha Terry MD XXX NO LONGER WITH FV CANNOT LOCATE XXX Assigned PCP 11/30/20 03/02/22 Kelle Disla MD [address] [place] [address] Assigned OBGYN Provider 08/20/21 Neelam Lunsford MD [address] [place] [address] Assigned PCP 03/03/22 02/01/23 Lakeisha Terry MD XXX NO LONGER WITH FV CANNOT LOCATE XXX Assigned PCP 02/02/23 05/24/23 Lakeisha Terry MD XXX NO LONGER WITH FV CANNOT LOCATE XXX Assigned PCP 06/01/23 07/10/23 [facility], [address], [address] [place] [address] Assigned PCP 07/11/23 documented as of this encounter
--- OUTSIDE RECORDS SUMMARY | 2024-04-13 08:21 | XMS_ITS | Encounter Summary ---
Author Organization [facility] Address [address] [place] [address] Care Team Providers Care Mesmerist Name Role Phone Lakeisha Terry MD Primary Care Provider Unavail able Lakeisha Terry MD Unavailable Unavailable Kelle Disla MD Unavailable [phone] Neelam Lunsford MD Unavailable [phone] Lakeisha Terry MD Unavailable Unavailable Lakeisha Terry MD Unavailable Unavailable [facility] Un[facility] Reason for Visit * Reason Onset Date Comments Forms 11/06/2021 FMLA Encounter Details Date Type Department Care Team (Late st Contact Info) Description 11/06/2021 [facility] [address] [place] [address] Lakeisha Terry MD XXX NO LONGER WITH FV CANNOT LOCATE XXX Forms ([facility]) Social History Tobacco Use Types Packs/Day Years Used Date Smoking Tobacco: Never Smokeless Tobacco: Never Alcohol Use Standard Drinks/Week Comments Yes 4 (1 standard drink = 0.6 oz pur e alcohol) PHQ-2 Answer Date Recorded PHQ-2 Score 1 09/28/2021 [place] Depression Scale Answer Date Recorded [place] Depression Score 6 09/28/2021 Last EPDS Self [...] encounter Miscellaneous Notes * Telephone Encounter - Chiquita Goncalves - 11/06/2021 10:34 AM CDT Patient has a virtual appointment today 11/06/21 and patient dropped off [facility] paperwork for the appointment. Please advise. Thank you. documented in this encounter Plan of Treatment Not on file documented as of this encounter Visit Diagnoses Not on filedocumented in this encounter Additional Health Concerns Assessment Noted Time PHQ-9 Depression Total Score: 0 11/11/19 21 5:01 PM CDT documented as of this encounter Care Teams Mesmerist Relationship Specialty Start Date End Date Lakeisha Terry MD PCP - General Family Medicine 04/30/20 07/18/23 Lakeisha Terry MD XXX NO LONGER WITH FV CANNOT LOCATE XXX Assigned PCP 11/30/20 03/02/22 Kelle Disla MD [address] [place] [address] Assigned OBGYN Provider 08/20/21 Neelam Lunsford MD [address] [place] [address] Assigned PCP 03/03/22 02/01/23 Lakeisha Terry MD XXX NO LONGER WITH FV CANNOT LOCATE XXX Assigned PCP 02/02/23 05/24/23 Lakeisha Terry MD XXX NO LONGER WITH FV CANNOT LOCATE XXX Assigned PCP 06/01/23 07/10/23 Clinic - [facility] [address], [address] [place], [place] [id number] Assigned PCP 07/11/23 documented as of this encounter
--- OUTSIDE RECORDS SUMMARY | 2024-04-13 08:21 | XMS_ITS | Encounter Summary ---
Author Organization [facility] Address [address] [place] [address] Care Team Providers Care Laser Engineer Name Role Phone Lakeisha Terry MD Primary Care Provider Unavail able Lakeisha Terry MD Unavailable Unavailable Kelle Espinoza MD Unavailable Unavaila Kelle Salas MD Unavailable [phone] Neelam Lunsford MD Unavailable [phone] Lakeisha Terry MD Unavailable Unavailable Lakeisha Terry MD Unavailable Unavailable Clinic - [facility] Unavailable Encounter Details Date Type Department Care Team (Late st Contact Info) Description 08/14/2021 [facility] [place] [place] [address] [facility] [address] [place] [phone] Magda Hadley, PT [address] [facility] [address] [place] [id number] Social History Tobacco Use Types Packs/Day Years [...] COVID-19? No / Unsure 08/09/2021 10:23 AM HEALTH PLAN SPECIALIST documented as of this encounter Plan of Treatment Not on file documented as of this encounter Visit Diagnoses Not on filedocumented in this encounter Additional Health Concerns Assessment Noted Time PHQ-9 Depression Total Score: 0 11/11/19 5:01 PM CDT documented as of this encounter Care Teams Laser Engineer Relationship Specialty Start Date End Date Lakeisha Terry MD PCP - General Family Medicine 04/30/20 07/18/23 Lakeisha Terry MD XXX NO LONGER WITH FV CANNOT LOCATE XXX Assigned PCP 11/30/20 03/02/22 Kelle Espinoza MD Assigned OBGYN Provider 04/30/21 08/19/21 Kelle Disla MD [address] [place] [id number] Assigned OBGYN Provider 08/20/21 Neelam Lunsford MD [address] [place] [address] Assigned PCP 03/03/22 02/01/23 Lakeisha Terry MD XXX NO LONGER WITH FV CANNOT LOCATE XXX Assigned PCP 02/02/23 05/24/23 Lakeisha Terry MD XXX NO LONGER WITH FV CANNOT LOCATE XXX Assigned PCP 06/01/23 07/10/23 Clinic - [address], [address] [place] [address] Assigned PCP 07/11/23 documented as of this encounter
--- OUTSIDE RECORDS SUMMARY | 2024-04-13 08:21 | XMS_ITS | Encounter Summary ---
Author Organization [facility] Address [address] [place] [address] Care Team Providers Care Ur Coordinator Name Role Phone Lakeisha Terry MD Primary Care Provider Unavail able Lakeisha Terry MD Unavailable Unavailable Kelle Espinoza MD Unavailable Unavaila Kelle Salas MD Unavailable [phone] Neelam Lunsford MD Unavailable [phone] Lakeisha Terry MD Unavailable Unavailable Lakeisha Terry MD Unavailable Unavailable [facility] - [facility] Unavailable Encounter Details Date Type Department Care Team (Late st Contact Info) Description 06/15/2021 [facility] Medical Advice [facility] [place] [address] [facility] [address] [place] [address] [phone] Magda Hadley, PT [address] [facility] [address] [place] [address] [id number] Social History Tobacco Use Types Packs/Day Years [...] Coronavirus / COVID-19? Yes 06/16/2021 8:50 AM CONFERENCE CONCIERGE documented as of this encounter Plan of Treatment Not on file documented as of this encounter Visit Diagnoses Not on filedocumented in this encounter Additional Health Concerns Infection Onset Date Last Indicated Resolved Time Rule Out COVID-19 06/28/2021 06/28/2021 06/28/2021 11:19 PM CONFERENCE CONCIERGE COVID-19 06/28/2021 06/28/2021 07/19/2021 11:3 9 PM CONFERENCE CONCIERGE Assessment Noted Time PHQ-9 Depression Total Score: 0 11/11/19 5:01 PM CDT documented as of this encounter Care Teams Ur Coordinator Relationship Specialty Start Date End Date Lakeisha Terry MD PCP - General Family Medicine 04/30/20 07/18/23 Lakeisha Terry MD XXX NO LONGER WITH FV CANNOT LOCATE XXX Assigned PCP 11/30/20 03/02/22 Kelle Espinoza MD Assigned OBGYN Provider 04/30/21 08/19/21 Kelle Disla MD [address] [place] [id number] Assigned OBGYN Provider 08/20/21 Neelam Lunsford MD [address] [place], [place] [address] Assigned PCP 03/03/22 02/01/23 Lakeisha Terry MD XXX NO LONGER WITH FV CANNOT LOCATE XXX Assigned PCP 02/02/23 05/24/23 Lakeisha Terry MD XXX NO LONGER WITH FV CANNOT LOCATE XXX Assigned PCP 06/01/23 07/10/23 Clinic - [address], [address] [place], [place] [id number] Assigned PCP 07/11/23 documented as of this encounter
--- OUTSIDE RECORDS SUMMARY | 2024-04-13 08:21 | XMS_ITS | Encounter Summary ---
Author Organization [facility] Address [address] [place] [address] Care Team Providers Care Betting Agency Counter Clerk Name Role Phone Lakeisha Terry MD Primary Care Provider Unavail able Lakeisha Terry MD Unavailable Unavailable Kelle Espinoza MD Unavailable Unavaila Kelle Salas MD Unavailable [phone] Neelam Lunsford MD Unavailable [phone] Lakeisha Terry MD Unavailable Unavailable Lakeisha Terry MD Unavailable Unavailable [facility] Unavailable Encounter Details Date Type Department Care Team (Late st Contact Info) Description 01/06/2021 [facility] Medical Advice [facility] [address] [place] [address] Lakeisha Terry MD XXX NO [...] Out COVID-19 05/02/2021 05/02/2021 05/02/2021 8:03 PM PERSONAL LINES SALES EXECUTIVE Rule Out COVID-19 06/28/2021 06/28/2021 06/28/2021 11:19 PM PERSONAL LINES SALES EXECUTIVE COVID-19 06/28/2021 06/28/2021 07/19/2021 11:3 9 PM PERSONAL LINES SALES EXECUTIVE Assessment Noted Time PHQ-9 Depression Total Score: 0 11/11/19 5:01 PM CDT documented as of this encounter Care Teams Betting Agency Counter Clerk Relationship Specialty Start Date End Date Lakeisha Terry MD PCP - General Family Medicine 04/30/20 07/18/23 Lakeisha Terry MD XXX NO LONGER WITH FV CANNOT LOCATE XXX Assigned PCP 11/30/20 03/02/22 Kelle Espinoza MD Assigned OBGYN Provider 04/30/21 08/19/21 Kelle Disla MD [address] [place] [address] Assigned OBGYN Provider 08/20/21 Neelam Lunsford MD [address] [place] [address] Assigned PCP 03/03/22 02/01/23 Lakeisha Terry MD XXX NO LONGER WITH FV CANNOT LOCATE XXX Assigned PCP 02/02/23 05/24/23 Lakeisha Terry MD XXX NO LONGER WITH FV CANNOT LOCATE XXX Assigned PCP 06/01/23 07/10/23 [facility] - [address], [address] [place] [address] Assigned PCP 07/11/23 documented as of this encounter
--- OUTSIDE RECORDS SUMMARY | 2024-04-13 08:21 | XMS_ITS | Encounter Summary ---
Author Organization [facility] Address [address] [place] [address] Care Team Providers Care Broadcast Field Supervisor Name Role Phone Lakeisha Terry MD Primary Care Provider Unavail able Lakeisha Trery MD Unavailable Unavailable Kelle Espinoza MD Unavailable Unavaila Kelle Salas MD Unavailable [phone] Neelam Lunsford MD Unavailable [phone] Lakeisha Terry MD Unavailable Unavailable Lakeisha Terry MD Unavailable Unavailable [facility] Unavailable Encounter Details Date Type Department Care Team (Late st Contact Info) Description 03/01/2021 [facility] [address] [place] [address] Mayte Rodarte Encounter for supervision of other normal in first trimester; Family history of hypothyroidism Social History Tobacco Use Types Packs/Day Years [...] have Coronavirus / COVID-19? No / Unsure 03/01/2021 2:23 PM CDT documented as of this encounter Plan of Treatment Not on file documented as of this encounter Procedures Procedure Name Priority Date/Time Associated Diagnosis Comments INVITAE NON-INVASIVE SCREENING Routine 03/01/2021 3:52 PM CDT Encounter for supervision of other normal in first trimester URINE CULTURE Routine 03/01/2021 3:52 PM CDT Encounter for supervision of other normal in first trimester TYPE AND SCREEN, ADULT Routine 03/01/2021 3:49 PM CDT Encounter for supervision of other normal in first trimester TSH WITH FREE T4 REFLEX Routine 03/01/2021 3:49 PM CDT Family history of hypothyroidism ABO/RH TYPE AND SCREEN Routine 03/01/2021 3:49 PM CDT Encounter for supervision of other normal in first trimester CBC WITH PLATELETS Routine 03/01/2021 3: 49 PM CDT Encounter for supervision of other normal in first trimester RUBELLA ANTIBODY IGG Routine 03/01/2021 3:48 PM CDT Encounter for supervision of other normal in first trimester HIV ANTIGEN ANTIBODY COMBO Routine 03/01/2021 3:48 PM CDT Encounter for supervision of other normal in first trimester TREPONEMA ABS W REFLEX TO RPR AND TITER Routine 03/01/2021 3:48 PM CDT Encounter for supervision of other normal in first trimester HEPATITIS B SURFACE ANTIGEN Routine 03/01/2021 3:48 PM CDT Encounter for supervision of other normal in first trimester documented in this encounter Results * Non Invasive Test Cell Free DNA (03/01/2021 3:52 PM CDT) See Scanned Result INVITAE NON-INVASIVE SCREENING-Ri anned 03/13/2021 12:59 PM CDT IN[facility] Blood STRUCTURE OF LEFT UPPER LIMB / Unknown Venipuncture / Unknown 03/01/2021 3:52 PM CDT 03/01/2021 3:57 PM CDT us Lakeisha Terry MD LAB - BLOOD ORDERABLES Final R esult INVITAE [address] [place] [id number] [place] [address] * Urine Culture Aerobic Bacterial (03/01/2021 3:52 PM CDT) Culture No Growth CHIQUI 03/02/2021 6:07 PM CDT [facility] Urine MID-STREAM URINE SPECIMEN / Unknown Non-blood Collection / Unknown 03/01/2021 3:52 PM CDT 03/01/2021 3:57 PM CDT us Lakeisha Terry MD LAB - MICRO GENERAL ORDERABLES Final Result Performing Organization Address City/[facility]/ZIP Co de Phone Number [facility] [address] [place] [address] * Adult Type and Screen (03/01/2021 3:49 PM CDT) ABO/RH(D) O POS 03/01/2021 12:00 AM CDT [facility]OD [facility] Antibody Screen Negative Negative 03/01/2021 12:00 AM CDT [facility] B[facility]OD [facility] SPECIMEN EXPIRATION DATE [id number] 03/01/2021 12:00 AM CDT [facility] Blood STRUCTURE OF LEFT UPPER LIMB / Unknown Venipuncture / Unknown 03/01/2021 3:49 PM CDT 03/01/2021 3:57 PM CDT us Lakeisha Terry MD LAB - BLOOD BANK TEST ORDER Fi nal Result [facility]OD [facility]ANK [address] [place], [place] [address] * TSH with free T4 reflex (03/01/2021 3:49 PM CDT) TSH 0.88 0.30 - 5.00 uIU/mL 03/01/2021 9:33 PM CDT [facility] Blood STRUCTURE OF LEFT UPPER LIMB / Unknown Venipuncture / Unknown 03/01/2021 3:49 PM CDT 03/01/2021 3:57 PM CDT us Lakeisha Terry MD LAB - BLOOD ORDERABLES Final R esult [facility] [address] [place] [address] * CBC with platelets (03/01/2021 3:49 PM CDT) WBC Count 8.8 4.0 - 11.0 10e3/uL 03/01/2021 4:40 PM CDT [facility] RBC Count 3.89 3.80 - 5.20 10e6/uL 03/01/2021 4:40 PM CDT [facility] Hemoglobin 12.3 11.7 - 15.7 g/dL 03/01/2021 4:40 PM CDT [facility] Hematocrit 37.4 35.0 - 47.0 % 03/01/2021 4:40 PM CDT [facility] MCV 96 78 - 100 fL 03/01/2021 4:40 PM CDT [facility] MCH 31.6 26.5 - 33.0 pg 03/01/2021 4:40 PM CDT [facility] MCHC 32.9 31.5 - 36.5 g/dL 03/01/2021 4:40 PM CDT [facility] RDW 11.7 10.0 - 15.0 % 03/01/2021 4:40 PM CDT [facility] Platelet Count 267 150 - 450 10e3/uL 03/01/2021 4:40 PM CDT [facility] Blood STRUCTURE OF LEFT UPPER LIMB / Unknown Venipuncture / Unknown 03/01/2021 3:49 PM CDT 03/01/2021 3:57 PM CDT us Lakeisha Terry MD LAB - BLOOD ORDERABLES Final R [place] [address], [facility] * Treponema Abs w Reflex to RPR and Titer (03/01/2021 3:48 PM CDT) Treponema Antibody Total Negative Negative 03/02/2021 10:16 AM CDT [facility] Blood STRUCTURE OF LEFT UPPER LIMB / Unknown Venipuncture / Unknown 03/01/2021 3:48 PM CDT 03/01/2021 3:57 PM CDT us Lakeisha Terry MD LAB - BLOOD ORDERABLES Final R esult Performing Organization Address [facility]/ZIP Co de Phone Number [facility] [address] [place] [address] * Rubella Antibody IgG Quantitative (03/01/2021 3:48 PM CDT) Rubella Antibody IgG Positive 03/02/2021 9:03 AM CDT [facility] Blood STRUCTURE OF LEFT UPPER LIMB / Unknown Venipuncture / Unknown 03/01/2021 3:48 PM CDT 03/01/2021 3:57 PM CDT Narrative [facility] - 03/02/2021 9:03 AM CDT Negative: Absence of detectable rubella virus IgG antibodies. A negative result presumes that immunity has not been acquired. Equivocal: Suggest recollection. Positive: Considered positive for IgG antibodies to rubella virus. us Lakeisha Terry MD LAB - BLOOD ORDERABLES Final R esult Performing Organization Address City/[facility]/ZIP Co de Phone Number [facility] [address] [place] [address], [facility] [phone] * HIV Antigen Antibody Combo (03/01/2021 3:48 PM CDT) HIV Antigen Antibody Combo Negative Negative 03/01/2021 11:47 PM CDT [facility] Blood STRUCTURE OF LEFT UPPER LIMB / Unknown Venipuncture / Unknown 03/01/2021 3:48 PM CDT 03/01/2021 3:57 PM CDT Lakeisha Terry MD LAB - BLOOD ORDERABLES Final R esult Performing Organization Address [facility]/ZIP Co de Phone Number [facility] [address] [place] [address], [facility] [phone] * Hepatitis B surface antigen (03/01/2021 3:48 PM CDT) Hepatitis B Surface Antigen Nonreactive Nonreactive 03/02/2021 9:16 AM CDT [facility] Blood STRUCTURE OF LEFT UPPER LIMB / Unknown Venipuncture / Unknown 03/01/2021 3:48 PM CDT 03/01/2021 3:57 PM CDT Lakeisha Terry MD LAB - BLOOD ORDERABLES Final R esult Performing Organization Address [facility]/ZIP Co de Phone Number [facility] [address] [place] [address], [facility] [phone] documented in this encounter Visit Diagnoses Diagnosis Encounter for supervision of other normal in first trimester Family history of hypothyroidism Family history of other endocrine and metabolic diseases documented in this encounter Additional Health Concerns Infection Onset Date Last Indicated Resolved Time Rule Out COVID-19 05/02/2021 05/02/2021 05/02/2021 8:03 PM CLINICAL ATHLETIC INSTRUCTOR Rule Out COVID-19 06/28/2021 06/28/2021 06/28/2021 11:19 PM CLINICAL ATHLETIC INSTRUCTOR COVID-19 06/28/2021 06/28/2021 07/19/2021 11:3 9 PM CLINICAL ATHLETIC INSTRUCTOR Assessment Noted Time PHQ-9 Depression Total Score: 0 11/11/19 5:01 PM CDT documented as of this encounter Care Teams Broadcast Field Supervisor Relationship Specialty Start Date End Date Lakeisha Terry MD PCP - General Family Medicine 04/30/20 07/18/23 Lakeisha Terry MD XXX NO LONGER WITH FV CANNOT LOCATE XXX Assigned PCP 11/30/20 03/02/22 Kelle Espinoza MD Assigned OBGYN Provider 04/30/21 08/19/21 Kelle Disla MD [address] [place], [place] [address] Assigned OBGYN Provider 08/20/21 Neelam Lunsford MD [address] [place], [place] [address] Assigned PCP 03/03/22 02/01/23 Lakeisha Terry MD XXX NO LONGER WITH FV CANNOT LOCATE XXX Assigned PCP 02/02/23 05/24/23 Lakeisha Terry MD XXX NO LONGER WITH FV CANNOT LOCATE XXX Assigned PCP 06/01/23 07/10/23 Clinic - [address], [address] [place] [address] Assigned PCP 07/11/23 documented as of this encounter
--- OUTSIDE RECORDS SUMMARY | 2024-04-13 08:21 | XMS_ITS | Encounter Summary ---
Author Organization [facility] Address [address] [place] [address] Care Team Providers Care Tube Roller Name Role Phone Lakeisha Terry MD Primary Care Provider Unavail able Lakeisha Terry MD Primary Care Provider Unavail able Lakeisha Terry MD Unavailable Unavailable Kelle Espinoza MD Unavailable Unavaila Kelle Salas MD Unavailable [phone] Neelam Lunsford MD Unavailable [phone] Lakeisha Terry MD Unavailable Unavailable Lakeisha Terry MD Unavailable Unavailable [facility] Unavailable Encounter Details Date Type Department Care Team (Latest Contact Info) Description 09/07/2019 Historic Results Social History Tobacco Use Types Packs/Day Years [...] Out COVID-19 05/02/2021 05/02/2021 05/02/2021 8:03 PM BOILER RIVETER Rule Out COVID-19 06/28/2021 06/28/2021 06/28/2021 11:19 PM BOILER RIVETER COVID-19 06/28/2021 06/28/2021 07/19/2021 11:3 9 PM BOILER RIVETER Assessment Noted Time PHQ-9 Depression Total Score: 11 021 1:16 AM CDT documented as of this encounter Care Teams Tube Roller Relationship Specialty Start Date End Date Lakeisha Terry MD PCP - General Family Medicine 04/30/20 07/18/23 Lakeisha Terry MD PCP - General 04/05/17 04/29/20 Lakeisha Terry MD XXX NO LONGER WITH FV CANNOT LOCATE XXX Assigned PCP 11/30/20 03/02/22 Kelle Espinoza MD Assigned OBGYN Provider 04/30/21 08/19/21 Kelle Disla MD [address] [place], [place] [address] Assigned OBGYN Provider 08/20/21 Neelam Lunsford MD [address] [place], [place] [address] Assigned PCP 03/03/22 02/01/23 Lakeisha Terry MD XXX NO LONGER WITH FV CANNOT LOCATE XXX Assigned PCP 02/02/23 05/24/23 Lakeisha Terry MD XXX NO LONGER WITH FV CANNOT LOCATE XXX Assigned PCP 06/01/23 07/10/[address] [place] [address] Assigned PCP 07/11/23 documented as of this encounter
--- OUTSIDE RECORDS SUMMARY | 2024-04-13 08:21 | XMS_ITS | Encounter Summary ---
Author Organization [facility] Address [address] [place] [address] Care Team Providers Care Wool Merchant Name Role Phone Lakeisha Terry MD Primary Care Provider Unavail able Lakeisha Terry MD Unavailable Unavailable Kelle Espinoza MD Unavailable Unavaila Kelle Salas MD Unavailable [phone] Neelam Lunsford MD Unavailable [phone] Lakeisha Terry MD Unavailable Unavailable Lakeisha Terry MD Unavailable Unavailable [facility] Unavailable Encounter Details Date Type Department Care Team (Late st Contact Info) Description 03/23/2021 [facility] Medical Advice [facility] [address] [place] [address] Lakeisha Terry MD XXX NO [...] Out COVID-19 05/02/2021 05/02/2021 05/02/2021 8:03 PM DISTRICT PLANT SUPERVISOR Rule Out COVID-19 06/28/2021 06/28/2021 06/28/2021 11:19 PM DISTRICT PLANT SUPERVISOR COVID-19 06/28/2021 06/28/2021 07/19/2021 11:3 9 PM DISTRICT PLANT SUPERVISOR Assessment Noted Time PHQ-9 Depression Total Score: 0 11/11/19 5:01 PM CDT documented as of this encounter Care Teams Wool Merchant Relationship Specialty Start Date End Date Lakeisha Terry MD PCP - General Family Medicine 04/30/20 07/18/23 Lakeisha Terry MD XXX NO LONGER WITH FV CANNOT LOCATE XXX Assigned PCP 11/30/20 03/02/22 Kelle Espinoza MD Assigned OBGYN Provider 04/30/21 08/19/21 Kelle Disla MD [address] [place] [address] Assigned OBGYN Provider 08/20/21 Neelam Lunsford MD [address] [place] [address] Assigned PCP 03/03/22 02/01/23 Lakeisha Terry MD XXX NO LONGER WITH FV CANNOT LOCATE XXX Assigned PCP 02/02/23 05/24/23 Lakeisha Terry MD XXX NO LONGER WITH FV CANNOT LOCATE XXX Assigned PCP 06/01/23 07/10/23 [facility] - [address], [address] [place] [address] Assigned PCP 07/11/23 documented as of this encounter
--- OUTSIDE RECORDS SUMMARY | 2024-04-13 08:21 | XMS_ITS | Encounter Summary ---
Author Organization [facility] Address [address] [place] [address] Care Team Providers Care Edge Gluer Name Role Phone Lakeisha Terry MD Primary Care Provider Unavail able Lakeisha Terry MD Unavailable Unavailable Kelle Espinoza MD Unavailable Unavaila Kelle Salas MD Unavailable [phone] Neelam Lunsford MD Unavailable [phone] Lakeisha Terry MD Unavailable Unavailable Lakeisha Terry MD Unavailable Unavailable [facility] Unavailable Encounter Details Date Type Department Care Team (Late st Contact Info) Description 03/13/2021 [facility] Medical Advice [facility] [address] [place] [address] Lakeisha Terry MD XXX NO [...] Out COVID-19 05/02/2021 05/02/2021 05/02/2021 8:03 PM SKIVING MACHINE OPERATOR Rule Out COVID-19 06/28/2021 06/28/2021 06/28/2021 11:19 PM SKIVING MACHINE OPERATOR COVID-19 06/28/2021 06/28/2021 07/19/2021 11:3 9 PM SKIVING MACHINE OPERATOR Assessment Noted Time PHQ-9 Depression Total Score: 0 11/11/19 5:01 PM CDT documented as of this encounter Care Teams Edge Gluer Relationship Specialty Start Date End Date Lakeisha Terry MD PCP - General Family Medicine 04/30/20 07/18/23 Lakeisha Terry MD XXX NO LONGER WITH FV CANNOT LOCATE XXX Assigned PCP 11/30/20 03/02/22 Kelle Espinoza MD Assigned OBGYN Provider 04/30/21 08/19/21 Kelle Disla MD [address] [place] [address] Assigned OBGYN Provider 08/20/21 Neelam Lunsford MD [address] [place] [address] Assigned PCP 03/03/22 02/01/23 Lakeisha Terry MD XXX NO LONGER WITH FV CANNOT LOCATE XXX Assigned PCP 02/02/23 05/24/23 Lakeisha Terry MD XXX NO LONGER WITH FV CANNOT LOCATE XXX Assigned PCP 06/01/23 07/10/23 [facility] - [address], [address] [place] [address] Assigned PCP 07/11/23 documented as of this encounter
--- OUTSIDE RECORDS SUMMARY | 2024-04-13 08:22 | XMS_ITS | Encounter Summary ---
Author Organization [facility] Address [address] [place] [address] Care Team Providers Care Slumber Room Attendant Name Role Phone Lakeisha Teryr MD Primary Care Provider Unavail able Lakeisha Terry MD Primary Care Provider Unavail able Lakeisha Terry MD Unavailable Unavailable Kelle Espinoza MD Unavailable Unavaila Kelle Salas MD Unavailable [phone] Neelam Lunsford MD Unavailable [phone] Lakeisha Terry MD Unavailable Unavailable Lakeisha Terry MD Unavailable Unavailable Clinic - [facility] Unavailable Encounter Details Date Type Department Care Team (Late st Contact Info) Description 04/05/2017 Records - [facility] CONVERSION Scan, Non-Provider Social History Tobacco Use Types Packs/Day Years [...] Out COVID-19 05/02/2021 05/02/2021 05/02/2021 8:03 PM SUPERVISOR HEAT TREATING Rule Out COVID-19 06/28/2021 06/28/2021 06/28/2021 11:19 PM SUPERVISOR HEAT TREATING COVID-19 06/28/2021 06/28/2021 07/19/2021 11:3 9 PM SUPERVISOR HEAT TREATING documented as of this encounter Care Teams Slumber Room Attendant Relationship Specialty Start Date End Date Lakeisha Terry MD PCP - General Family Medicine 04/30/20 07/18/23 Lakeisha Terry MD PCP - General 04/05/17 04/29/20 Lakeisha Terry MD XXX NO LONGER WITH FV CANNOT LOCATE XXX Assigned PCP 11/30/20 03/02/22 Kelle Espinoza MD Assigned OBGYN Provider 04/30/21 08/19/21 Kelle Disla MD [address] [place] [address] Assigned OBGYN Provider 08/20/21 Neelam Lunsford MD [address] [place] [address] Assigned PCP 03/03/22 02/01/23 Lakeisha Terry MD XXX NO LONGER WITH FV CANNOT LOCATE XXX Assigned PCP 02/02/23 05/24/23 Lakeisha Terry MD XXX NO LONGER WITH FV CANNOT LOCATE XXX Assigned PCP 06/01/23 07/10/[address] [place] [address] Assigned PCP 07/11/23 documented as of this encounter
--- OUTSIDE RECORDS SUMMARY | 2024-04-13 08:22 | XMS_ITS | Encounter Summary ---
Author Organization [facility] Address [address] [place] [id number] Care Team Providers Care Engineering Project Manager Name Role Phone Lakeisha Terry MD Primary Care Provider Unavail able Lakeisha Terry MD Primary Care Provider Unavail able Lakeisha Terry MD Unavailable Unavailable Kelle Espinoza MD Unavailable Unavaila Kelle Salas MD Unavailable Neelam Lunsford MD Unavailable [phone] Lakeisha Terry MD Unavailable Unavailable Lakeisha Terry MD Unavailable Unavailable Clinic - [facility] Unavailable Encounter Details Date Type Department Care Team (Late st Contact Info) Description 09/18/2018 [facility] - [address] [employer] [address] [place] [id number] Waleska Knight CNM [address] [place] [address] [place] [address] Social History Tobacco Use Types Packs/Day Years Used Date Smoking Tobacco: Never Assessed Comments Unknown Sex and Gender Information Value Date Recorded Sex Assigned at Not on file Legal Sex Female 7:28 AM CDT Gender Identity Not on file Sexual Orientation Not on file documented as of this encounter Progress Notes * Waleska Knight CNM - 09/18/2018 1:00 PM CDT Assessment: 1. 4 week old gaining weight very well on exclusive (1.5 oz/day over last 2 weeks) 2. Good latch, suck and milk transfer in office today 3. Nipple vasospasm 4. Good milk supply Plan: 1. To continue to nurse baby on cue, 8-12 times each day. Feed on one side until baby finishes swallowing. Once swallowing slows, use breast compression to encourage more swallowing, but once there is no more active swallowing, and baby is either sleeping, coming off the breast, or just nibbling,it is OK to use a finger to take baby off the breast and move to the other breast. Do the same on the other side. Offer both breasts at each feeding. 2. To consider trying some different positions for feeding to help empty different parts of the breast and for comfort. Laid-back and sidelying position demonstrated during visit today--given video link for laid-back position as well. 3. Discussed nipple vasospasm: To try applying heat to nipples after feeding to help with pain, andcan also try some supplementary Vitamin B6 (200 mg daily x 4 days, then 25-50 mg/day). Explained could consider nifedipine if other measures not helpful. Given written information on vasospasm. 4. If baby gets very upset at the breast and will not nurse, suggested trying [id number] for calming before trying again. If having latch difficulties because of breast fullness, recommended reverse pressure softening, hand expression or use of passive pump to soften breasts enough for Nghia to get a deep latch. Demonstrated hand expression today and given written info on reverse pressure softening. 5. Discussed pumping and anticipatory guidance for return to work--explained that pumping now to build up a large store of milk before return to work is not necessary or advisable, as relying on previously-pumped milk can decrease milk supply once baby is in childcare. Reassured that it is OK to pump occasionally if desired for some extra milk to have for convenience or emergency bottles, butfrequent pumping during early weeks is not necessary. 6. See Dr. Terry as planned, and as necessary, via phone, appt or MyChart. Subjective: Anel is here today because sometimes dania Agrawal does not latch well--pulls on and off the breast. Sometimes latches easily, and sometimes just goes on and off over and over. She feels this happens primarily when her breasts are very full, particularly during the nighttime. Secondly, she has been noticing sharp stinging pain in her nipples when they are exposed to cold, such as when she goes outside. She does not have pain when feeding--it is primarily between feedings or when going outdoors. She has looked for blanching and has not seen this. Goals: Continued exclusive Previous Experience: none Infants name: Nghia Lazaro's bday: [birth year] Gestational age: 38w6d 's weight: 8# 4 oz Mode of delivery: vaginal Infants MD: Dr. Terry Discharge weight: 7# 13 oz Frequency and duration of feedings: every 2-4 hours, for 15-60 min Swallows audible per mother: yes Numbers of feedings in 24 hours: 7 Number urines per day: 12 Number of stools per day and their color: 9, brown liquidy Supplementation: none Pumping: once daily, obtains 5-7 oz Objective/Physical exam: Mother: Noticed breasts grew larger and areolas darkened during and she noticed primary engorgement when her milk came in. Her nipples are everted, the areola is compressible, the breast is soft and full. Sore nipples: yes, between feedings--stinging EPDS: 3 Assessment of infant: 55.66% Weight for age percentile Age today: 4 weeks Today's weight: 9# 12.2 oz Amount [...] bottom gum line. Baby thrush: none Jaundice: mild at forehead Feeding assessment: Baby can hold suction with tongue while at the breast, although he did come on & off several times Alignment: The baby was flex relaxed. Baby's head was aligned with its trunk. Baby did face mother.Baby was in cross cradle and laid back positions today. Areolar Grasp: Baby was able to open mouth wide. Baby's lips were not pursed. Baby's lips did flange outward. Tongue was visible just barely over bottom lip. Baby had complete seal. Areolar Compression: Baby made rhythmic motion. There were no clicking or smacking sounds. There was no severe nipple discomfort. Nipples appeared rounded after feeding. Left nipple did have some bluish discoloration immediately after feeding, and a small area of blanching about 5 minutes after completion of feeding, and Anel was experiencing pain at that time. Audible swallowing: Baby made quiet sounds of swallowing: There was an increase in frequency after milk ejection reflex. The milk ejection reflex is normal and milk supply is normal. Current Outpatient Medications: ??? ibuprofen (ADVIL,MOTRIN) 800 MG tablet, Take 1 tablet (800 mg total) by mouth every 8 (eight) hours., Disp: 30 tablet, Rfl: 0 ??? lanolin (LANSINOH HPA) 100 % Oint, Apply as needed, Disp: , Rfl: 0 ??? mometasone (NASONEX) 50 mcg/actuation nasal spray, 2 sprays into each nostril daily., Disp: 17g, Rfl: 2 ??? vitamin iron-folic acid 27mg-0.8mg ( S) 27 mg iron- 800 mcg Tab tablet, Take 1tablet by mouth daily., Disp: , Rfl: Past Medical History: Diagnosis Date ??? Abnormal Pap smear of cervix ??? HPV (human papilloma virus) infection ??? Insomnia Past Surgical History: Procedure Laterality Date ??? LASIK Bilateral ??? WISDOM TOOTH EXTRACTION Family History Problem Relation Age of Onset ??? Hypothyroidism Mother ??? No Medical Problems Father ??? No Medical Problems Sister ??? No Medical Problems Brother ??? Endometrial cancer Maternal Grandmother ??? Hypothyroidism Maternal Grandmother ??? Coronary artery disease Maternal Grandmother ??? Heart disease Maternal Grandfather ??? Cancer Paternal Grandmother LMP 11/25/2017 TT 60 min >50% counseling and education Waleska Knight APRN, PIO, IBCLC documented in this encounter Miscellaneous Notes * Patient Instructions - HE - Waleska Knight, PIO - 09/18/2018 1:00 PM CDT 1. To continue to nurse baby on cue, 8-12 times each day. Feed on one side until baby finishes swallowing. Once swallowing slows, use breast compression to encourage more swallowing, but once there is no more active swallowing, and baby is either sleeping, coming off the breast, or just nibbling,it is OK to use a finger to take baby off the breast and move to the other breast. Do the same on the other side. Offer both breasts at each feeding. It is more important to watch the baby than the clock! 2. Consider trying some different positions for feeding to help empty different parts of the breastand for comfort, like the sidelying and the laid-back. 3. Try applying heat to nipples after feeding to help with pain, and can also try some supplementary Vitamin B6. 4. If he gets very upset at the breast and will not nurse, if breasts are very full, can try reverse pressure softening or some hand expression to soften breasts enough for Nghia to get a deep latch, or use Ha[employer]aa pump. Or, could also try some [id number] for calming. 5. Pumping now to build up a large store of milk before return to work is not necessary or advisable, as relying on previously-pumped milk can decrease milk supply once baby is in childcare. It is OKto pump occasionally if desired for some extra milk to have for convenience or emergency bottles, but frequent pumping during early weeks is not necessary. 6. See Dr. Terry as planned, and see as necessary. For good videos on the laid-back position: Www.naturalbreastfeeding.com Www.YouScribe.Fracture Good resources: www.Biomoda.Fracture The Baby Book: Dr. Bender and Yamile Beasley The Womanly Art of by [facility] For help with using baby carriers: Https://babywearingtwincities.org/ For managing vasospasm: - adjust position to reduce fast flow (laid back, football hold with baby upright and mom reclining). - start w/ less painful side first - Heating pad on low (or hand warmer, rice sock) placed over clothing on breasts right after pumping or nursing - Keep nipples moist and warm. No air drying. Protect from friction. Use light touch. - Consider large pumping flanges - Pumping one side at a time and cover other side w/ heating pad - Mindfulness/meditation, other calming strategies - Ibuprofen/acetaminophen for pain - Try Vit B 6 supplement: 200 mg/day for four days, then 25-50 mg daily (this dose can be taken as part of a B- complex vitamin) - Limit caffeine - If pain is intolerable, a medication (nifedipine) can be considered REVERSE PRESSURE SOFTENING Devaughn Raymundo RNC-E, IBCLC, ( ) What is reverse pressure softening? It???s a new way to soften the areola (the reno-sparks around your nipple ) to make latching and removing your milk easy while your baby and you are learning. LATCHING SHOULD NOT BE PAINFUL. This new method is not the same as removing milk with your fingers. Don???t expect milk to come from your nipple each time. But it???s OK if some milk does come out. Why does reverse pressure softening work? Early swelling, firmness or ???fullness?? may be only partly due to milk. Some swelling may be from extra fluid stored (retained) in the spongy, protective tissue around your milk ducts. (This extra fluid can never go to your baby.) Delayed milk removal often leads later to retained tissue fluid. Frequent, regular removal of small amounts of early milk is best. Intravenous (IV) fluids, or drugs such as pitocin may often cause early, extra retained tissue fluid, sometimes taking 7-14 days to go away. Reverse pressure softening briefly moves mild or firmer swelling away from under your areola, slightly backward into your breast for a short period of 5-10 minutes. This allows your areola to change shape very easily, and makes latching easier. The softened areola helps your nipple extend more deeply into baby???s mouth. reverse pressure softening also causes a ???let-down?? reflex. (This signals your breasts to quickly release more milk forward, so baby???s tongue can reach it.) A soft areola also makes it easier to remove milk with fingertips or with SHORT PERIODS OF SLOW GENTLE PUMPING. If you need to remove milk for your baby with fingertips or pump, use reverse pressure softening, whenever needed. You may also gently massage milk forward in the breast. Avoid long pumping sessions and high vacuum settings on breast pumps to avoid movement of extra retained tissue fluid into the areola and nipple. When is reverse pressure softening helpful? In the first weeks, for firmness of the areola, latch problems or breast swelling. At any time, to get a ???let-down?? reflex, before or while pumping. Feel your areola and the tissue deeper inside it. Is it soft and easy to squeeze, like your earlobe or your lip? If not, it???s time to try reverse pressure softening each time just before your baby wants your breast. (Some mothers soften their areola before each feeding, for a week or longer, till swelling goes down, latching is deep and easy, and milk is flowing well. REVERSE PRESSURE SOFTENING SHOULD CAUSE NO DISCOMFORT. CAUTION-NEVER TO BE USED FOR MASTITIS, PLUGGED DUCTS OR ABCESS How to do REVERSE PRESSURE SOFTENING -developed by Devaughn Raymundo RNC-E, IBCLC Try this if pain, swelling, or fullness create problems during the early weeks of learning to breastfeed. The joe is making the areola very soft right around the base of the nipple, for better latching. A softer areola helps baby???s tongue remove more milk, while being very gentle to your nipple. Mothers say curved fingers work best. (Fig. 1 or 2) Ask someone to show you if needed Press inward toward the chest wall, counting slowly to 50; count very slowly if very swollen. Moms with very swollen breasts get more relief lying on their back, (using gravity.) This delays return of swelling to the areola, giving more time to latch. (For long fingernails, try another way shown below.). If mom wishes, someone else may help, using thumbs (Fig. 5). Soften the areola right before each feeding (or pumping) till swelling goes away. For some mothers, this takes 2-4 days or more. Make any pumping sessions short, with pauses to re-soften the areola if needed. Use medium or low vacuum, to reduce the return of swelling into the areola. You may ask someone to help press by placing fingers or thumbs on top of yours One handed ???flower hold?? : Fingernails short, Fingertips curved, placed where baby???s tongue will go Two handed, one-step method: Fingernails short, Fingertips curved, each one touching the side of the nipple Two step method, two hands: using 2 or 3 straight fingers each side, first knuckles touching nipple. Move ?? turn, repeat above & below nipple Two step method, two hands: using straight thumbs, base of thumbnail at side of nipple. Move ?? turn, repeat, thumbs above & below nipple (See pictures at this link: Https://Biomoda.Fracture/bf/concerns/mother/rev_pressure_soft_loli/) Illustrations by Rafa Raymundo, Reverse Pressure Softening by Devaughn Raymundo ?? 2009 This handout may be copied and distributed without further permission, on the condition that it is not used in any context violating The International WHO Code on the Marketing of Breastmilk Substitutes documented in this encounter Plan of Treatment Not on file documented as of this encounter Visit Diagnoses Not on filedocumented in this encounter Additional Health Concerns Infection Onset Date Last Indicated Resolved Time Rule Out COVID-19 05/02/2021 05/02/2021 05/02/2021 8:03 PM CLINICAL RESEARCH ASSISTANT Rule Out COVID-19 06/28/2021 06/28/2021 06/28/2021 11:19 PM CLINICAL RESEARCH ASSISTANT COVID-19 06/28/2021 06/28/2021 07/19/2021 11:3 9 PM CLINICAL RESEARCH ASSISTANT documented as of this encounter Care Teams Engineering Project Manager Relationship Specialty Start Date End Date Lakeisha Terry MD PCP - General Family Medicine 04/30/20 07/18/23 Lakeisha Terry MD PCP - General 04/05/17 04/29/20 Lakeisha Terry MD XXX NO LONGER WITH [facility] CANNOT LOCATE XXX Assigned PCP 11/30/20 03/02/22 Kelle Espinoza MD Assigned OBGYN Provider 04/30/21 08/19/21 Kelle Disla MD [address] [place] [address] Assigned OBGYN Provider 08/20/21 Neelam Lunsford MD [address] [place] [address] Assigned PCP 03/03/22 02/01/23 Lakeisha Terry MD XXX NO LONGER WITH [facility] CANNOT LOCATE XXX Assigned PCP 02/02/23 05/24/23 Lakeisha Terry MD XXX NO LONGER WITH [facility] CANNOT LOCATE XXX Assigned PCP 06/01/23 07/10/23 [facility] - [address], [address] [place] [address] Assigned PCP 07/11/23 documented as of this encounter
--- OUTSIDE RECORDS SUMMARY | 2024-04-13 08:22 | XMS_ITS | Clinical Summary ---
Author Organization [facility] Address [place], [place] [address] Care Team Providers Care Detention Attendant Name Role Phone Isabel Samson MD Primary Care Provide r Sanam Greco MD Unavailable [phone] Allergies No known active allergies Medications Medication Sig Dispensed Refills Start Date End Date Status valACYclovir (VALTREX) 1 gram tabletIndications :Recurrent cold sores Take 2 tablets by mouth twice daily for 1 day at the first sign of cold sore. 20 Tablet 11 09/26/2022 Active metroNIDAZOLE 0.75% vaginal (METROGEL) 0.75 % (37.5mg/5 gram) vaginal gelIndications:Ba cterial vaginosis Use 1 applicatorful vaginally at bedtime twice weekly for 12-24 weeks. 70 g 5 07/17/2023 Active valACYclovir (VALTREX) 500 mg tabletIndications :HSV infection Take 1 Tablet (500 mg) by mouth once daily. 90 Tablet 5 08/12/2023 Active traZODone (DESYREL) 50 mg tabletIndications :Insomnia, idiopathic Take 1-2 Tablets (50-100 mg) by mouth at bedtime if needed for Sleep. 180 Tablet 4 11/13/2023 Active ARIPiprazole (Abilify) 5 mg tabletIndications :Cyclothymia Take 1 Tablet (5 mg) by mouth once daily. 90 Tablet 1 12/20/2023 Active desvenlafaxine succinate (PRISTIQ) 50 mg Extended-Release tabletIndications :Adjustment disorder with mixed anxiety and depressed mood Take 1 Tablet (50 mg) by mouth once daily. 90 Tablet 1 01/05/2024 Active Active Problems Problem Noted Date Diagnosed Date PSVT (paroxysmal supraventricular tachycardia) 0 09/26/2022 Insomnia, idiopathic 01/12/2022 Hyperlipidemia 01/12/2022 Adjustment disorder with mixed anxiety and depre ssed mood 10/10/2020 ASCUS with positive high risk HPV cervical 11/04 Overview (10/24/2022): 10/2017 ASCUS/HPV+, HPV 16/18 negative 11/2017 Walker: Normal, no biopsy 09/2018 NIL/HPV+, HPV 16/18 negative 03/2020 NIL/HPV negative 04/2021 NIL/HPV+, HPV 16/18 negative 10/2021 NIL/HPV negative 09/2022 NIL/HPV negative Plan: Pap/HPV due in 3 years Resolved Problems Problem Noted Date Diagnosed Date Resolved Date Paroxysmal SVT (supraventricular tachycardia) 11/29/19 24 11/29/2023 Paroxysmal SVT (supraventricular tachycardia) 07/17/19 24 11/29/2023 Female stress incontinence 03/03/2018 0 01/12/2022 Immunizations Name Administration Dates Next Due COVID-19 VACCINE SPIKEVAX (M ODERNA 50MCG/0.5ML) 12YO+ PFS 03/29/2023 COVID-19 vaccine ([employer] NTech 30mcg/0.3mL) PF, MDV 03/21/2021,06/24/2020,06/06/2020 Influenza Virus, Unspecified 03/01/2021, 03/01/2021,03/09/2020,2019,04/06/2019,04/06/2019,03/07/2018,0 03/07/2018,03/11/2017,03/11/2017 Influenza, IIV4 03/14/2023, 2,03/01/2021,2019,04/06/2019,03/07/2018,03/11/2017 MMR 04/17/2022,03/16/2022 Tdap, Unspecified 07/12/2021,06/18/2018 Family History Medical History Relation Name Comments Other Brother possibly asd No Known Problems Father Coronary artery disease Maternal Grandfather Lymphoma Maternal Grandfather NHL Melanoma Maternal Grandfather Coronary artery disease Maternal Grandmother Endometrial cancer Maternal Grandmother Other Maternal Grandmother likely other cancer of unknown type Thyroid Disease Maternal Grandmother Hyperlipidemia Mother Hypothyroidism Mother No Known Problems Paternal Grandfather No Known Problems Paternal Grandmother ADD / ADHD Sister Cancer-breast No Family History Cancer-colon No Family History Cancer-ovarian No Family History Colon polyps No Family History Relation Name Status Comments Brother Alive Father Alive Maternal Grandfather Maternal Grandmother Mother Alive Paternal Grandfather Paternal Grandmother Alive Sister Alive Social History Tobacco Use Types Packs/Day Years Used Date Smoking Tobacco: Never Passive Smoke Exposure: Never Smokeless Tobacco: Never Tobacco Cessation:Counseling Given: No Alcohol Use Standard Drinks/Week Comments Yes 7 (1 standard drink = 0.6 oz pur e alcohol) PHQ-2 Answer Date Recorded PHQ-2 TOTAL SCORE 1 11/29/2023 Social Connections Answer Date Recorded Frequency of Communication with Friends and Fami ly 0 11/29/2023 Financial Resource Strain Answer Date R ecorded Difficulty of Paying Living Expenses 3 11/29/2023 Difficulty of Paying Living Expenses Not on file 11/29/2023 Food Insecurity Answer Date Recorded Do you worry your food will run out before you are able to buy more? 1 11/29/2023 Transportation Needs Answer Date Record ed Lack of Transportation (Medical) 1 11/29/2023 Housing Stability Answer Date Recorded What is your housing situation today? 1 11/29/2023 Sex and Gender Information Value Date Recorded Sex Assigned at Not on file Gender Identity Not on file Sexual Orientation Not on file Obstetrics History Last Filed Vital Signs Vital Sign Reading Time Taken Comments Blood Pressure 112/72 11/29/2023 3:07 PM CDT Pulse 79 11/29/2023 3:07 PM CDT Temperature 36.4 ??C (97.6 ??F) 10/01/2023 1:30 PM CD T Respiratory Rate 20 11/29/2023 3:07 PM CDT Oxygen Saturation 97% 11/29/2023 3:07 PM CDT Inhaled Oxygen Concentration - - Weight 67.1 kg (148 lb) 11/29/2023 3:07 PM CDT Height 158.5 cm (5' 2.4) 11/29/2023 3:07 PM CDT Body Mass Index 26.72 11/29/2023 3:07 PM CDT Plan of Treatment Health Maintenance Due Date Last Done Comments HIV for age 15-65 2001 Hepatitis C screening for age 18-79 2004 COVID-19 vaccine series (2023- season) 2024 03/29/2023, 03/16/2022, 03/21/2021, Additional history exists Influenza for age 9-49 02/16/2024 , 03/16/2022, 03/01/2021, Additional history exists BMI (ht and wt on same day) for age 18+ 11/28/2024 11/29/2023, 03/29/2023, 02/26/2023, Additional history exists Depression screening for age 12+ 11/28/2024 11/29/2023, 10/02/2023, 09/26/2022, Additional history exists Pap test for age 21-65 09/26/2025 , 09/26/2022, 10/27/2021 (Verified in Care Everywhere or Patient Record) Tetanus booster 07/12/2031 07/12/2021, 06/18/2018 Tdap Completed 07/12/2021, 06/18/2018 Pneumococcal series for age 6-64 Aged Out No longer eligible based on patient's age to complete this topic Procedures Procedure Name Priority Date/Time Associated Diagnosis Comments SKIN DIVER THIN PREP PAP SCREEN IMAGED Routine 09/26/2022 2:30 PM CDT Cervical cancer screening from Last 3 Months or Most Recently Relevant to Health Maintenance Results * SKIN DIVER THIN PREP PAP SCREEN IMAGED (09/26/2022 2:30 PM CDT) Case Report Gynecologic Cytology Report ? Case: [id number] ? Authorizing Provider: ??Isabel Samson, ??Collected: ? 09/26/2022 1430 ? MD ? Ordering Location: ? [facility] Received: ?09/26/2022 1524 ? First Screen: ?Stevie Clinton ? Specimen: ?SKIN DIVER ThinPrep Vial Screening, Cervical ? 10/23/2022 12:38 PM CDT [facility] INTERPRETATION/ RESULT NEGATIVE FOR INTRAEPITHELIAL LESION OR MALIGNANCY (NIL) (none) 10/23/2022 12:38 PM CDT [facility] IMEN ADEQUACY Satisfactory for evaluation No endocervical component seen 10/23/2022 12:38 PM CDT [facility] HPV REQUEST HPV and PAP 10/23/2022 12:38 PM CDT [facility] Date of LMP 202110/23/2022 12:38 PM CDT [facility] Last Pap Date 202110/23/2022 12:38 PM CDT [facility] Last Pap Result NIL 12:38 PM CDT [facility] Abnormal Pap or Walker Bx in last 5 years No 10/23/2022 12:38 PM CDT [facility] Menstrual Status Hysterectomy-cerv ix present 10/23/2022 12:38 PM CDT [facility] Walker Bx Done Today No 10/23/2022 12:38 PM CDT [facility] Additional Information None given 10/23/2022 12:38 PM CDT [facility] Comment: Cytology is screened at [facility] - [address], [place] [address] and [facility] - [address], [place] [address] and [facility] - [address] [place] [address] Interpreted at [facility] - [address] [place] [address] Automated Review Successful 10/23/2022 12:38 PM CDT [facility] Comment:Specimen processed s uccessfully by automated printer machine device, ThinPrep Imaging System, [employer] ANCILLARY TESTING SKIN DIVER HPV Ordered, Please see separate report 10/23/2022 12:38 PM CDT [facility] Note The pap test is a screening technique, not a diagnostic procedure. It is used primarily to screen for squamous cancers and precursor lesions. Published studies have shown that it is subject to both false negative and false positive results. The pap test should not be used as the sole means to diagnose or exclude pre-malignant and malignant lesions. 10/23/2022 12:38 PM CDT [facility] Other (Cervical) Non-Blood / Unknown 09/26/2022 2:30 PM CDT 09/26/2022 3:24 PM CDT Isabel Samson MD PATHOLOGY/CYT OLOGY [facility] [address] [place] [address], [place] from Last 3 Months or Most Recently Relevant to Health Maintenance Advance Directives * Full Code (Latest Code Status on File) Date Activated Date Inactivated Comments 04/08/2023 2:03 PM 04/08/2023 8:41 PM Question Answer Comments Code Status Discussion: Reviewed Preferences Care Teams Detention Attendant Relationship Specialty Start Date End Date Isabel Samson MD [address] [place] [address] PCP - General Family Practice 06/07/22 Sanam Greco MD [address] [place] [address] Consulting Physician Cardiology - Electrophysiology 01/23/23
[2024-04-13 08:23] VITALS: BP 135/76; PULSE 71; RESP 16; TEMP 36.6; O2SAT 99; BMI 26.5
--- NOTE | 2024-04-13 09:15 | ED.GENADULT ---
HPI - General Adult General Chief complaint: Insect Bite Stated complaint: Tick in hair, sent from Time Seen by Provider: 04/13/24 09:00 History of Present Illness HPI narrative: Patient noticed tick in bottom of hair. Went to in [place]. They attempted to take it out but couldn't. Sent her here for further evaluation. Is red around site . thinks there might be some cellulitis. Has had a little diarrhea but pt thinks its unrelated. 38-year-old woman presenting to the emergency department with concern of imbedded tick in her scalp, posterior neck. Had initially presented to urgent care and apparently could not remove the tick and so sent to the emergency department. Does have some pain radiating down the left side of her posterior neck. No fever. It sounds as though the tick may have been present for 24 hours or less. She would like treatment for potential infection for what ever disease might be imparted by the tick or secondary bacterial cellulitis. Grossed out by the whole thing. Related Data Home Medications ?Medication ?Instructions ?Recorded ?Confirmed desvenlafaxine succinate 100 mg 100 mg PO Q24H 06/06/22 04/13/24 tablet,extended release 24 hr trazodone 50 mg tablet 50 mg PO QHS PRN 06/06/22 04/13/24 propranolol 10 mg tablet 10 mg PO 3XD anxiety 01/28/23 04/13/24 valacyclovir 1 gram tablet 1,000 mg PO PRN 01/28/23 04/13/24 Previous Rx's ?Medication ?Instructions ?Recorded ondansetron 4 mg disintegrating 4 mg PO Q8H #10 tabs 01/30/23 tablet fluconazole 150 mg tablet 150 mg PO Q3D 2 doses #2 tabs 02/27/24 Allergies Allergy/AdvReac Type Severity Reaction Status Date / Time No Known Drug Allergies Allergy Verified 04/13/24 08:21 Review of Systems Status of ROS: Reports: 6 or more systems reviewed and unremarkable except as noted in History and below [facility] Medical History Tick bite ?W57.XXXA - Bitten or stung by nonvenomous insect and other nonvenomous arthropods, initial encounter (ICD-10) Sinusitis, acute ?J01.90 - Acute sinusitis, unspecified (ICD-10) Acute left otitis media ?H66.92 - Otitis media, unspecified, left ear (ICD-10) Hyperlipidemia ?E78.5 - Hyperlipidemia, unspecified (ICD-10) Insomnia ?G47.00 - Insomnia, unspecified (ICD-10) ASCUS (atypical squamous cells of undetermined significance) on gynecologic Papanicolaou smear complicating , antepartum Strep pharyngitis ?J02.0 - Streptococcal pharyngitis (ICD-10) Acute pharyngitis ?J02.9 - Acute pharyngitis, unspecified (ICD-10) Community acquired bacterial pneumonia ?J15.9 - Unspecified bacterial pneumonia (ICD-10) Surgical History History of vaginal hysterectomy ?Z90.710 - Acquired absence of both cervix and uterus (ICD-10) Social History Smoking Status: Never smoker How often do you have a drink containing alcohol: 4 or more times a week Alcohol type: wine AUDIT-C Alcohol total score: 4 Non-prescribed substance use: denies use Caffeine: No Exam Narrative: Exam Narrative: Pleasant. NAD. Mildly stressed. Skin is warm and dry. Examination of the central posterior neck proximally at the occipital insertion shows an imbedded medium-sized tick. Small surrounding inflammation. No regional lymphadenopathy. Neck is supple. Const: Vital Signs, click to edit/add: Vital Signs - 24 hr 04/13/24 08:23 Temperature 97.9 F Pulse Rate [Pulse Oximeter] 71 Respiratory Rate 16 Blood Pressure [Ri ght Upper Arm] 135/76 Pulse Oximetry 99 Oxygen Delivery Me thod Room Air Documenting provider has reviewed patient's vital signs: yes Course Vital Signs Vital signs: Initial Vital Signs Temperature 97.9 F 04/13/24 08:23 Temperature Source Temporal Artery Scan 04/13/24 08:23 Pulse Rate 71 04/13/24 08:23 Pulse Rhythm Regular 04/13/24 08:23 Pulse Strength 3+ Normal 04/13/24 08:23 Respiratory Rate 16 04/13/24 08:23 Blood Pressure 135/76 04/13/24 08:23 Blood Pressure Mean 95 04/13/24 08:23 Blood Pressure Position Sitting 04/13/24 08:23 Pulse Oximetry 99 04/13/24 08:23 Oxygen Delivery Method Room Air 04/13/24 08:23 Vital Signs Temperature 97.9 F 04/13/24 08:23 Pulse Rate 71 04/13/24 08:23 Respiratory Rate 16 04/13/24 08:23 Blood Pressure 135/76 04/13/24 08:23 Pulse Oximetry 99 04/13/24 08:23 Oxygen Delivery Method Room Air 04/13/24 08:23 Temperature 97.9 F 04/13/24 08:23 Pulse Rate 71 04/13/24 08:23 Respiratory Rate 16 04/13/24 08:23 Blood Pressure 135/76 04/13/24 08:23 Pulse Oximetry 99 04/13/24 08:23 Oxygen Delivery Method Room Air 04/13/24 08:23 Medications Administered Medications: Discontinued Medications Generic Name Dose Route Start Last Admin Trade Name Freq PRN Reason Stop Dose Admin Doxycycline Hyclate 200 mg 04/13/24 09:52 04/13/24 10:14 Doxycycline Hyclate 100 Mg PO 04/13/24 09:53 200 mg ONCE ONE Administration Medical Decision Making MDM Narrative Medical decision making narrative: This tick does not appear to be a deer tick. Will attempt to remove this. Did return with splinter forceps. Able to remove the tick with head unfortunately with mouth part remaining. Continued to attempt to pluck out this mouth part but ultimately required small incision. Prior to this, injected the area with lidocaine. About a mL. Made a 3/16th inch intradermal cut adjacent/over this mouth part and was then able to get purchase for removal. No bleeding. Placed some antibiotic ointment. While I do not see evidence of a cellulitis and I think it unlikely that anything was transmitted over duration of tick attachment, though there is some uncertainty of time and this is not a deer tick, will be given a singular dose of doxycycline here in the emergency department as requested. See patient discharge plan for further discussion Medical Records Medical records reviewed: Yes I reviewed the patient's medical records Discharge Plan Discharge Clinical Impression: Tick bite Additional Instructions: Might place a dab of antibiotic ointment here over the next 2 or 3 days. Watch for spreading redness after 2 days, marked increase in pain/swelling/redness, purulence drainage. Prescriptions: No Action desvenlafaxine succinate 100 mg tablet extended release 24 hr 100 mg PO Q24H Patient Comments: TAKE 1 TABLET BY MOUTH EVERY MORNING trazodone 50 mg tablet 50 mg PO QHS PRN propranolol 10 mg tablet 10 mg PO 3XD valacyclovir 1 gram tablet 1,000 mg PO PRN ondansetron 4 mg tablet,disintegrating 4 mg PO Q8H Qty: 10 0RF fluconazole 150 mg tablet 150 mg PO Q3D Qty: 2 1RF Follow Up/Referrals: Provider,Not a Local [Primary Care Provider] - Stand Alone Forms: [facility] Info Instructions
--- OUTSIDE RECORDS SUMMARY | 2024-04-13 10:01 | XMS_ITS | Encounter Summary ---
Author Organization [facility] Address [address] [place] [address] Care Team Providers Care Materials Scientist Name Role Phone Lakeisha Terry MD Primary Care Provider Unavail able Lakeisha Terry MD Unavailable Unavailable Kelle Espinoza MD Unavailable Unavaila Kelle Salas MD Unavailable [phone] Neelam Lunsford MD Unavailable [phone] Lakeisha Terry MD Unavailable Unavailable Lakeisha Terry MD Unavailable Unavailable [facility] Unavailable Encounter Details Date Type Department Care Team (Late st Contact Info) Description 07/26/2021 [facility] Medical Advice [facility] [address] [place] [address] Lakeisha Terry MD XXX NO [...] COVID-19? No / Unsure 07/26/2021 11:26 AM GOLD CUTTER documented as of this encounter Plan of Treatment Not on file documented as of this encounter Visit Diagnoses Not on filedocumented in this encounter Additional Health Concerns Assessment Noted Time PHQ-9 Depression Total Score: 0 11/11/19 5:01 PM CDT documented as of this encounter Care Teams Materials Scientist Relationship Specialty Start Date End Date Lakeisha Terry MD PCP - General Family Medicine 04/30/20 07/18/23 Lakeisha Terry MD XXX NO LONGER WITH [facility] CANNOT LOCATE XXX Assigned PCP 11/30/20 03/02/22 Kelle Espinoza MD Assigned OBGYN Provider 04/30/21 08/19/21 Kelle Disla MD [address] [place], [place] [address] Assigned OBGYN Provider 08/20/21 Neelam Lunsford MD [address] [place], [place] [address] Assigned PCP 03/03/22 02/01/23 Lakeisha Terry MD XXX NO LONGER WITH [facility] CANNOT LOCATE XXX Assigned PCP 02/02/23 05/24/23 Lakeisha Terry MD XXX NO LONGER WITH [facility] CANNOT LOCATE XXX Assigned PCP 06/01/23 07/10/23 Clinic - [address], [address] [place] [address] Assigned PCP 07/11/23 documented as of this encounter
--- OUTSIDE RECORDS SUMMARY | 2024-04-13 10:01 | XMS_ITS | Encounter Summary ---
Author Organization [facility] Address [address] [place] [address] Care Team Providers Care Foreman Shipping Department Name Role Phone Lakeisha Terry MD Primary Care Provider Unavail able Lakeisha Terry MD Unavailable Unavailable Kelle Disla MD Unavailable [phone] Neelam Lunsford MD Unavailable [phone] Lakeisha Terry MD Unavailable Unavailable Lakeisha Terry MD Unavailable Unavailable [facility] Unavailable Reason for Visit * Reason Onset Date Comments Forms 11/06/2021 FMLA Encounter Details Date Type Department Care Team (Late st Contact Info) Description 11/06/2021 [facility] [address] [place] [address] Lakeisha Terry MD XXX NO LONGER WITH [facility] CANNOT LOCATE XXX Forms ([facility]) Social History Tobacco Use Types Packs/Day Years Used Date Smoking Tobacco: Never Smokeless Tobacco: Never Alcohol Use Standard Drinks/Week Comments Yes 4 (1 standard drink = 0.6 oz pur e alcohol) PHQ-2 Answer Date Recorded PHQ-2 Score 1 09/28/2021 [place] Depression Scale Answer Date Recorded [place] Depression Score 6 09/28/2021 Last EPDS Self [...] appointment today 11/06/21 and patient dropped off [facility] paperwork for the appointment. Please advise. Thank you. documented in this encounter Plan of Treatment Not on file documented as of this encounter Visit Diagnoses Not on filedocumented in this encounter Additional Health Concerns Assessment Noted Time PHQ-9 Depression Total Score: 0 11/11/19 21 5:01 PM CDT documented as of this encounter Care Teams Foreman Shipping Department Relationship Specialty Start Date End Date Lakeisha Terry MD PCP - General Family Medicine 04/30/20 07/18/23 Lakeisha Terry MD XXX NO LONGER WITH [facility] CANNOT LOCATE XXX Assigned PCP 11/30/20 03/02/22 Kelle Disla MD [address] [place] [address] Assigned OBGYN Provider 08/20/21 Neelam Lunsford MD [address] [place] [address] Assigned PCP 03/03/22 02/01/23 Lakeisha Terry MD XXX NO LONGER WITH [facility] CANNOT LOCATE XXX Assigned PCP 02/02/23 05/24/23 Lakeisha Terry MD XXX NO LONGER WITH [facility] CANNOT LOCATE XXX Assigned PCP 06/01/23 07/10/23 Clinic - [facility] [address], [address] [place], [place] [id number] Assigned PCP 07/11/23 documented as of this encounter
--- OUTSIDE RECORDS SUMMARY | 2024-04-13 10:01 | XMS_ITS | Encounter Summary ---
Author Organization [facility] Address [address] [place] [address] Care Team Providers Care Pattern Technician Name Role Phone Lakeisha Terry MD Primary Care Provider Unavail able Lakeisha Terry MD Unavailable Unavailable Kelle Espinoza MD Unavailable Unavaila Kelel Salas MD Unavailable [phone] Neelam Lunsford MD Unavailable [phone] Lakeisha Terry MD Unavailable Unavailable Lakeisha Terry MD Unavailable Unavailable Clinic [facility] Unavailable Encounter Details Date Type Department Care Team (Late st Contact Info) Description 08/14/2021 [facility] [place] [facility] [place] [address] [facility] [address] [place] [phone] Magda Hadley, PT [address] [facility] [address] [place] [id number] Social History Tobacco Use Types Packs/Day Years [...] COVID-19? No / Unsure 08/09/2021 10:23 AM RN IMMUNOLOGY documented as of this encounter Plan of Treatment Not on file documented as of this encounter Visit Diagnoses Not on filedocumented in this encounter Additional Health Concerns Assessment Noted Time PHQ-9 Depression Total Score: 0 11/11/19 5:01 PM CDT documented as of this encounter Care Teams Pattern Technician Relationship Specialty Start Date End Date Lakeisha Terry MD PCP - General Family Medicine 04/30/20 07/18/23 Lakeisha Terry MD XXX NO LONGER WITH [facility] CANNOT LOCATE XXX Assigned PCP 11/30/20 03/02/22 Kelle Espinoza MD Assigned OBGYN Provider 04/30/21 08/19/21 Kelle Disla MD [address] [place] [address] Assigned OBGYN Provider 08/20/21 Neelam Lunsford MD [address] [place] [address] Assigned PCP 03/03/22 02/01/23 Lakeisha Terry MD XXX NO LONGER WITH [facility] CANNOT LOCATE XXX Assigned PCP 02/02/23 05/24/23 Lakeisha Terry MD XXX NO LONGER WITH [facility] CANNOT LOCATE XXX Assigned PCP 06/01/23 07/10/23 Clinic - [address], [address] [place] [address] Assigned PCP 07/11/23 documented as of this encounter
--- OUTSIDE RECORDS SUMMARY | 2024-04-13 10:01 | XMS_ITS | Encounter Summary ---
Author Organization [place] Address [address] [place] [address] Care Team Providers Care Technical Advisor Name Role Phone Lakeisha Terry MD Primary Care Provider Unavail able Lakeisha Terry MD Unavailable Unavailable Kelle Espinoza MD Unavailable Unavaila Kelle Salas MD Unavailable [phone] Neelam Lunsford MD Unavailable [phone] Lakeisha Terry MD Unavailable Unavailable Lakeisha Terry MD Unavailable [facility] Unavailable Encounter Details Date Type Department Care Team (Late st Contact Info) Description 03/13/2021 [facility] Medical Advice [facility] [address] [place] [address] Lakeisha Terry MD XXX NO [...] Out COVID-19 05/02/2021 05/02/2021 05/02/2021 8:03 PM FACILITY EXAMINER Rule Out COVID-19 06/28/2021 06/28/2021 06/28/2021 11:19 PM FACILITY EXAMINER COVID-19 06/28/2021 06/28/2021 07/19/2021 11:3 9 PM FACILITY EXAMINER Assessment Noted Time PHQ-9 Depression Total Score: 0 11/11/19 5:01 PM CDT documented as of this encounter Care Teams Technical Advisor Relationship Specialty Start Date End Date Lakeisha Terry MD PCP - General Family Medicine 04/30/20 07/18/23 Lakeisha Terry MD XXX NO LONGER WITH FV CANNOT LOCATE XXX Assigned PCP 11/30/20 03/02/22 Kelle Espinoza MD Assigned OBGYN Provider 04/30/21 08/19/21 Kelle Disla MD [address] [place] [address] Assigned OBGYN Provider 08/20/21 Neelam Lunsford MD [address] [place] [address] Assigned PCP 03/03/22 02/01/23 Lakeisha Terry MD XXX NO LONGER WITH FV CANNOT LOCATE XXX Assigned PCP 02/02/23 05/24/23 Lakeisha Terry MD XXX NO LONGER WITH FV CANNOT LOCATE XXX Assigned PCP 06/01/23 07/10/23 [facility] - [address], [address] [place] [address] Assigned PCP 07/11/23 documented as of this encounter
--- OUTSIDE RECORDS SUMMARY | 2024-04-13 10:01 | XMS_ITS | Encounter Summary ---
Author Organization [place] Address [address] [place] [address] Care Team Providers Care Construction Coordinator Name Role Phone Lakeisha Terry MD Primary Care Provider Unavail able Lakeisha Terry MD Unavailable Unavailable Kelle Espinoza MD Unavailable Unavaila Kelle Salas MD Unavailable [phone] Neelam Lunsford MD Unavailable [phone] Lakeisha Terry MD Unavailable Unavailable Lakeisha Terry MD Unavailable Unavailable [facility] Unavailable Encounter Details Date Type Department Care Team (Late st Contact Info) Description 01/27/2021 [facility] Medical Advice [facility] [address] [place] [address] Lakeisha Terry MD XXX NO [...] Out COVID-19 05/02/2021 05/02/2021 05/02/2021 8:03 PM REAL ESTATE SERVICES ADMINISTRATOR Rule Out COVID-19 06/28/2021 06/28/2021 06/28/2021 11:19 PM REAL ESTATE SERVICES ADMINISTRATOR COVID-19 06/28/2021 06/28/2021 07/19/2021 11:3 9 PM REAL ESTATE SERVICES ADMINISTRATOR Assessment Noted Time PHQ-9 Depression Total Score: 0 11/11/19 5:01 PM CDT documented as of this encounter Care Teams Construction Coordinator Relationship Specialty Start Date End Date Lakeisha Terry MD PCP - General Family Medicine 04/30/20 07/18/23 Lakeisha Terry MD XXX NO LONGER WITH FV CANNOT LOCATE XXX Assigned PCP 11/30/20 03/02/22 Kelle Espinoza MD Assigned OBGYN Provider 04/30/21 08/19/21 Kelle Disla MD [address] [place] [address] Assigned OBGYN Provider 08/20/21 Neelam Lunsford MD [address] [place] [address] Assigned PCP 03/03/22 02/01/23 Lakeisha Terry MD XXX NO LONGER WITH FV CANNOT LOCATE XXX Assigned PCP 02/02/23 05/24/23 Lakeisha Terry MD XXX NO LONGER WITH FV CANNOT LOCATE XXX Assigned PCP 06/01/23 07/10/23 Clinic - [address], [address] [place] [address] Assigned PCP 07/11/23 documented as of this encounter
--- OUTSIDE RECORDS SUMMARY | 2024-04-13 10:01 | XMS_ITS | Encounter Summary ---
Author Organization [place] Address [address] [place] [address] Care Team Providers Care Mobile Home Mechanic Name Role Phone Lakeisha Terry MD Primary Care Provider Unavail able Lakeisha Terry MD Unavailable Unavailable Kelle Espinoza MD Unavailable Unavaila Kelle Salas MD Unavailable [phone] Neelam Lunsford MD Unavailable [phone] Lakeisha Terry MD Unavailable Unavailable Lakeisha Terry MD Unavailable Unavailable [facility] Unavailable Encounter Details Date Type Department Care Team (Late st Contact Info) Description 08/14/2021 [facility] [address] [place] [address] Lakeisha Terry MD XXX NO [...] COVID-19? No / Unsure 08/09/2021 10:23 AM DOMESTIC CLEANER documented as of this encounter Plan of Treatment Not on file documented as of this encounter Visit Diagnoses Not on filedocumented in this encounter Additional Health Concerns Assessment Noted Time PHQ-9 Depression Total Score: 0 11/11/19 5:01 PM CDT documented as of this encounter Care Teams Mobile Home Mechanic Relationship Specialty Start Date End Date Lakeisha Terry MD PCP - General Family Medicine 04/30/20 07/18/23 Lakeisha Terry MD XXX NO LONGER WITH FV CANNOT LOCATE XXX Assigned PCP 11/30/20 03/02/22 Kelle Espinoza MD Assigned OBGYN Provider 04/30/21 08/19/21 Kelle Disla MD [address] [place], [place] [address] Assigned OBGYN Provider 08/20/21 Neelam Lunsford MD [address] [place], [place] [address] Assigned PCP 03/03/22 02/01/23 Lakeisha Terry MD XXX NO LONGER WITH FV CANNOT LOCATE XXX Assigned PCP 02/02/23 05/24/23 Lakeisha Terry MD XXX NO LONGER WITH FV CANNOT LOCATE XXX Assigned PCP 06/01/23 07/10/23 Clinic - [address], [address] [place] [address] Assigned PCP 07/11/23 documented as of this encounter
--- OUTSIDE RECORDS SUMMARY | 2024-04-13 10:01 | XMS_ITS | Encounter Summary ---
Author Organization [place] Address [address] [place] [address] Care Team Providers Care Bush And Vine Farmer Fruit Crops Name Role Phone Lakeisha Terry MD Primary Care Provider Unavail able Lakeisha Terry MD Unavailable Unavailable Kelle Disla MD Unavailable [phone] Neelam Lunsford MD Unavailable [phone] Lakeisha Terry MD Unavailable Unavailable Lakeisha Terry MD Unavailable Unavailable [facility] Unavailable Encounter Details Date Type Department Care Team (Late st Contact Info) Description 11/01/2021 [facility] [place] [address] [place] [address] Lakeisha Terry MD XXX NO LONGER WITH FV CANNOT LOCATE XXX Social History Tobacco Use Types Packs/Day Years Used Date Smoking Tobacco: Never Smokeless Tobacco: Never Alcohol Use Standard Drinks/Week Comments Yes 4 (1 standard drink = 0.6 oz pur e alcohol) PHQ-2 Answer Date Recorded PHQ-2 Score 1 09/28/2021 [place] Depression Scale Answer Date Recorded [place] Depression Score 6 09/28/2021 Last EPDS Self [...] documented as of this encounter Care Teams Bush And Vine Farmer Fruit Crops Relationship Specialty Start Date End Date Lakeisha Terry MD PCP - General Family Medicine 04/30/20 07/18/23 Lakeisha Terry MD XXX NO LONGER WITH FV CANNOT LOCATE XXX Assigned PCP 11/30/20 03/02/22 Kelle Disla MD [address] [place] [address] Assigned OBGYN Provider 08/20/21 Neelam Lunsford MD [address] [place] [address] Assigned PCP 03/03/22 02/01/23 Lakeisha Terry MD XXX NO LONGER WITH FV CANNOT LOCATE XXX Assigned PCP 02/02/23 05/24/23 Lakeisha Terry MD XXX NO LONGER WITH FV CANNOT LOCATE XXX Assigned PCP 06/01/23 07/10/23 [facility] - [address], [address] [place], [place] [id number] Assigned PCP 07/11/23 documented as of this encounter
--- OUTSIDE RECORDS SUMMARY | 2024-04-13 10:01 | XMS_ITS | Clinical Summary ---
Author Organization [place] Address [address] [place] [address] Care Team Providers Care Hydraulics Teacher Name Role Phone [facility] Unavailable Allergies No known active allergies Medications [...] Answer Date Recorded PHQ-2 Score 1 09/28/2021 [place] Depression Scale Answer Date Recorded [place] Depression Score 6 09/28/2021 Last EPDS Self [...] this topic Medical Devices Implanted Type Area Rn Orthopedic Device Identifier Shelf Expiration Date Model / Serial / Lot Sling Y Mesh Restorelle Contour 3x24cm [id number] - [id number] Implanted:Qty: 1 on 11/08/2021 by Aneesh Anguiano MD at [facility] Mesh N/A: Pelvis COLOPLAST [id number] 06/01/2024 [id number] / / [id number] Procedures Procedure Name Priority Date/Time Associated Diagnosis [...] LAB - BLOOD ORDERABLES Final Result LABORATORY [facility] [address] Lab (1st floor, no room number) [place] [address], [facility] [phone] * Pap screen with HPV - recommended [...] component of this testing was completed at [facility] 11/06/2021 1:57 PM CDT [facility] Brushing CERVIX UTERI STRUCTURE / Unknown 10/27/2021 11:15 AM CDT 10/27/2021 11:58 AM CDT us Lakeisha Terry MD LAB - BEAKER AP Final Result [facility] [address] [place] [address], [facility] [phone] * HPV High Risk Types DNA Cervical [...] and its performance characteristics determined by the [facility], Molecular Diagnostics Laboratory. It has not been [...] followup is recommended. 10/31/2021 3:49 PM CDT [email or web address] Brushing CERVIX UTERI STRUCTURE / Unknown Non-blood Collection / Unknown 10/27/2021 11:15 AM CDT 10/30/2021 8:28 AM CDT us Lakeisha Terry MD LAB - BLOOD ORDERABLES Final R esult [facility] [address] [facility] J [facility], Room [address] [place] [address], [facility] [phone] * HIV Antigen Antibody Combo (03/01/2021 3:48 PM CDT) Pathologist [facility] HIV Antigen Antibody Combo Negative Negative 03/01/2021 11:47 PM CDT [facility] Blood STRUCTURE OF LEFT UPPER LIMB / Unknown Venipuncture / Unknown 03/01/2021 3:48 PM CDT 03/01/2021 3:57 PM CDT us Lakeisha Terry MD LAB - BLOOD ORDERABLES Final R esult Performing Organization Address City/[facility]/ZIP Co de Phone Number [facility] [address] [address], [facility] [phone] * Hepatitis C antibody (02/07/2018 4:37 PM CDT) [facility] Hepatitis C Antibody Negative Negative 02/10/2018 8:[address] [facility] Blood specimen (specimen) Venipuncture / Unknown 02/07/2018 4:37 PM CDT 02/07/2018 7:28 PM CDT us Lakeisha Terry MD LAB - BLOOD ORDERABLES Final R esult Performing Organization Address [facility] Co de Phone Number [facility] [address] [address], [facility] [address] [place] [address] from Last 3 Months or Most Recently Relevant to Health Maintenance Insurance [facility] [id number]ANES [address] [facility] Advance Directives For more information, please contact: [phone] * Full Code (Latest Code Status on [...] or legal decision maker available Care Teams Hydraulics Teacher Relationship Specialty Start Date End Date [facility] - [address], [address] [facility] [place], [place] [id number] Assigned PCP 07/11/23
--- OUTSIDE RECORDS SUMMARY | 2024-04-13 10:01 | XMS_ITS | Encounter Summary ---
Author Organization [place] Address [address] [place] [address] Care Team Providers Care Education Finance Processor Name Role Phone Lakeisha Terry MD Primary Care Provider Unavail able Lakeisha Terry MD Unavailable Unavailable Kelle Disla MD Unavailable [phone] Neelam Lunsford MD Unavailable [phone] Lakeisha Terry MD Unavailable Unavailable Lakeisha Terry MD Unavailable Unavailable [facility] Unavailable Encounter Details Date Type Department Care Team (Late st Contact Info) Description 11/06/2021 [facility] Phase II [address] [place] [phone] [facility] Social History Tobacco Use Types Packs/Day Years Used Date Smoking Tobacco: Never Smokeless Tobacco: Never Alcohol Use Standard Drinks/Week Comments Yes 4 (1 standard drink = 0.6 oz pur e alcohol) PHQ-2 Answer Date Recorded PHQ-2 Score 1 09/28/2021 [place] Depression Scale Answer Date Recorded [place] Depression Score 6 09/28/2021 Last EPDS Self [...] documented as of this encounter Care Teams Education Finance Processor Relationship Specialty Start Date End Date Lakeisha Terry MD PCP - General Family Medicine 04/30/20 07/18/23 Lakeisha Terry MD XXX NO LONGER WITH FV CANNOT LOCATE XXX Assigned PCP 11/30/20 03/02/22 Kelle Disla MD [address] [place] [address] Assigned OBGYN Provider 08/20/21 Neelam Lunsford MD [address] [place] [address] Assigned PCP 03/03/22 02/01/23 Lakeisha Terry MD XXX NO LONGER WITH FV CANNOT LOCATE XXX Assigned PCP 02/02/23 05/24/23 Lakeisha Terry MD XXX NO LONGER WITH FV CANNOT LOCATE XXX Assigned PCP 06/01/23 07/10/[address], [address] [place] [address] Assigned PCP 07/11/23 documented as of this encounter
--- OUTSIDE RECORDS SUMMARY | 2024-04-13 10:01 | XMS_ITS | Encounter Summary ---
Author Organization [place] Address [address] [place] [address] Care Team Providers Care Abattoir Manager Name Role Phone Lakeisha Terry MD Primary Care Provider Unavail able Lakeisha Terry MD Unavailable Unavailable Kelle Disla MD Unavailable Neelam Lunsford MD Unavailable [phone] Lakeisha Terry MD Unavailable Unavailable Lakeisha Terry MD Un[facility] Un[facility] Encounter Details Date Type Department Care Team (Late st Contact Info) Description 09/28/2021 [facility] [address] [facility] [address] [place] [address] Waleska Knight CNM [address] [place] [id number] Social History Tobacco Use Types Packs/Day Years Used Date Smoking Tobacco: Never Smokeless Tobacco: Never Alcohol Use Standard Drinks/Week Comments Yes 4 (1 standard drink = 0.6 oz pur e alcohol) PHQ-2 Answer Date Recorded PHQ-2 Score 1 09/28/2021 [place] Depression Scale Answer Date Recorded [place] Depression Score 6 09/28/2021 Last EPDS Self [...] documented as of this encounter Care Teams Abattoir Manager Relationship Specialty Start Date End Date Lakeisha Terry MD PCP - General Family Medicine 04/30/20 07/18/23 Lakeisha Terry MD XXX NO LONGER WITH FV CANNOT LOCATE XXX Assigned PCP 11/30/20 03/02/22 Kelle Disla MD [address] [place] [address] Assigned OBGYN Provider 08/20/21 Neelam Lunsford MD [address] [place] [address] Assigned PCP 03/03/22 02/01/23 Lakeisha Terry MD XXX NO LONGER WITH FV CANNOT LOCATE XXX Assigned PCP 02/02/23 05/24/23 Lakeisha Terry MD XXX NO LONGER WITH FV CANNOT LOCATE XXX Assigned PCP 06/01/23 07/10/23 [facility], [address], [address] [place] [address] Assigned PCP 07/11/23 documented as of this encounter
--- OUTSIDE RECORDS SUMMARY | 2024-04-13 10:01 | XMS_ITS | Referral Summary ---
Author Organization [place] Address [address] [place] [address] Care Team Providers Care Press Operator Carbon Products Name Role Phone [facility] Unavailable Allergies No known active allergies Medications [...] Answer Date Recorded PHQ-2 Score 1 09/28/2021 [place] Depression Scale Answer Date Recorded [place] Depression Score 6 09/28/2021 Last EPDS Self [...] on file Medical Devices Implanted Type Area Systems Qa Analyst Device Identifier Shelf Expiration Date Model / Serial / Lot Sling Y Mesh Restorelle Contour 3x24cm [id number] - [id number] Implanted:Qty: 1 on 11/08/2021 by Aneesh Anguiano MD at [facility] Mesh N/A: Pelvis COLOPLAST [id number] 06/01/2024 [id number] / / [id number] Procedures Procedure Name Priority Date/Time Associated Diagnosis [...] LAB - BLOOD ORDERABLES Final Result LABORATORY [facility] [address] Lab (1st floor, no room number) [place] [address], [facility] [phone] * Pap screen with HPV - recommended [...] component of this testing was completed at [facility] 11/06/2021 1:57 PM CDT [facility] Brushing CERVIX UTERI STRUCTURE / Unknown 10/27/2021 11:15 AM CDT 10/27/2021 11:58 AM CDT us Lakeisha OTT - GARRETT RODARTE Final Result [facility] [address] [phone] * HPV High Risk Types DNA Cervical [...] and its performance characteristics determined by the [facility], Molecular Diagnostics Laboratory. It has not [...] LAB - BLOOD ORDERABLES Final R esult [facility] [address] [facility], [address] [address], [facility] [phone] * HIV Antigen Antibody Combo (03/01/2021 3:48 PM CDT) HIV Antigen Antibody Combo Negative Negative 03/01/2021 11:47 PM CDT [facility] Blood STRUCTURE OF LEFT UPPER LIMB / Unknown Venipuncture / Unknown 03/01/2021 3:48 PM CDT 03/01/2021 3:57 PM CDT Lakeisha Terry MD LAB - BLOOD ORDERABLES Final R esult [facility] [address] [address], [facility] [phone] * Hepatitis C antibody (02/07/2018 4:37 PM CDT) Hepatitis C Antibody Negative Negative 02/10/2018 8:05 AM CDT [facility] Blood specimen (specimen) Venipuncture / Unknown 02/07/2018 4:37 PM CDT 02/07/2018 7:28 PM CDT Lakeisha Terry MD LAB - BLOOD ORDERABLES Final R esult Performing Organization Address City/State/[facility] Co de Phone Number [facility] [address] [address], [facility] [address] [address] from Last 3 Months or Most Recently Relevant to Health Maintenance Insurance [facility] CHO[facility] Advance Directives For more information, please contact: [phone] * Full Code (Latest Code Status on [...] or legal decision maker available Care Teams Press Operator Carbon Products Relationship Specialty Start Date End Date [facility] - [address], [address] [address] Assigned PCP 07/11/23
--- OUTSIDE RECORDS SUMMARY | 2024-04-13 10:01 | XMS_ITS | Encounter Summary ---
Author Organization [place] Address [address] [place] [address] Care Team Providers Care Mobile Device Engineer Name Role Phone Lakeisha Terry MD Primary Care Provider Unavail able Lakeisha Terry MD Unavailable Unavailable Kelle Espinoza MD Unavailable Unavaila Kelle Salas MD Unavailable [phone] Neelam Lunsford MD Unavailable [phone] Lakeisha Terry MD Unavailable Unavailable Lakeisha Terry MD Unavailable Unavailable [facility] Unavailable Encounter Details Date Type Department Care Team (Late st Contact Info) Description 01/17/2021 [facility] [place] [facility] [address] [place] [address] Lakeisha Terry MD XXX NO [...] Out COVID-19 05/02/2021 05/02/2021 05/02/2021 8:03 PM MATHEMATICS TEACHER Rule Out COVID-19 06/28/2021 06/28/2021 06/28/2021 11:19 PM MATHEMATICS TEACHER COVID-19 06/28/2021 06/28/2021 07/19/2021 11:3 9 PM MATHEMATICS TEACHER Assessment Noted Time PHQ-9 Depression Total Score: 0 11/11/19 5:01 PM CDT documented as of this encounter Care Teams Mobile Device Engineer Relationship Specialty Start Date End Date Lakeisha Terry MD PCP - General Family Medicine 04/30/20 07/18/23 Lakeisha Terry MD XXX NO LONGER WITH FV CANNOT LOCATE XXX Assigned PCP 11/30/20 03/02/22 Kelle Espinoza MD Assigned OBGYN Provider 04/30/21 08/19/21 Kelle Disla MD [address] [place] [address] Assigned OBGYN Provider 08/20/21 Neelam Lunsford MD [address] [place] [address] Assigned PCP 03/03/22 02/01/23 Lakeisha Terry MD XXX NO LONGER WITH FV CANNOT LOCATE XXX Assigned PCP 02/02/23 05/24/23 Lakeisha Terry MD XXX NO LONGER WITH FV CANNOT LOCATE XXX Assigned PCP 06/01/23 07/10/23 [facility] - [address], [address] [place] [address] Assigned PCP 07/11/23 documented as of this encounter
--- OUTSIDE RECORDS SUMMARY | 2024-04-13 10:01 | XMS_ITS | Encounter Summary ---
Author Organization [place] Address [address] [place] [address] Care Team Providers Care Environmental Engineering Manager Name Role Phone Lakeisha Terry MD Primary Care Provider Unavail able Lakeisha Terry MD Unavailable Unavailable Kelle Espinoza MD Unavailable Unavaila Kelle Salas MD Unavailable [phone] Neelam Lunsford MD Unavailable [phone] Lakeisha Terry MD Unavailable Unavailable Lakeisha Terry MD Unavailable Unavailable [facility] [place] [place] Unavailable Encounter Details Date Type Department Care Team (Late st Contact Info) Description 06/15/2021 [facility] [place] [facility] [place] [address] [facility] [address] [place] [phone] Magda Hadley, PT [address] [facility] [address] [place] [phone] Social History Tobacco Use Types Packs/Day Years [...] Coronavirus / COVID-19? Yes 06/16/2021 8:50 AM OUTREACH CONSULTANT documented as of this encounter Plan of Treatment Not on file documented as of this encounter Visit Diagnoses Not on filedocumented in this encounter Additional Health Concerns Infection Onset Date Last Indicated Resolved Time Rule Out COVID-19 06/28/2021 06/28/2021 06/28/2021 11:19 PM OUTREACH CONSULTANT COVID-19 06/28/2021 06/28/2021 07/19/2021 11:3 9 PM OUTREACH CONSULTANT Assessment Noted Time PHQ-9 Depression Total Score: 0 11/11/19 5:01 PM CDT documented as of this encounter Care Teams Environmental Engineering Manager Relationship Specialty Start Date End Date Lakeisha Terry MD PCP - General Family Medicine 04/30/20 07/18/23 Lakeisha Terry MD XXX NO LONGER WITH FV CANNOT LOCATE XXX Assigned PCP 11/30/20 03/02/22 Kelle Espinoza MD Assigned OBGYN Provider 04/30/21 08/19/21 Kelle Disla MD [address] [place] [address] Assigned OBGYN Provider 08/20/21 Neelam Lunsford MD [address] [place], [place] [address] Assigned PCP 03/03/22 02/01/23 Lakeisha Terry MD XXX NO LONGER WITH FV CANNOT LOCATE XXX Assigned PCP 02/02/23 05/24/23 Lakeisha Terry MD XXX NO LONGER WITH FV CANNOT LOCATE XXX Assigned PCP 06/01/23 07/10/23 Clinic - [address], [address] [place], [place] [id number] Assigned PCP 07/11/23 documented as of this encounter
--- OUTSIDE RECORDS SUMMARY | 2024-04-13 10:01 | XMS_ITS | Encounter Summary ---
Author Organization [facility] Address [address] [place] [address] Care Team Providers Care Bandage Maker Name Role Phone Lakeisha Terry MD Primary Care Provider Unavail able Lakeisha Terry MD Unavailable Unavailable Kelle Espinoza MD Unavailable Unavaila Kelle Salas MD Unavailable [phone] Neelam Lunsford MD Unavailable [phone] Lakeisha Terry MD Unavailable Unavailable Lakeisha Terry MD Unavailable Unavailable [facility] Unavailable Encounter Details Date Type Department Care Team (Late st Contact Info) Description 03/01/2021 [facility] Only [facility] Laboratory [address] [place] [address] Mayte Rodarte Encounter for supervision [...] PM CDT) See Scanned Result [facility] NON-INVASIVE SCREENING-Hi anned 03/13/2021 12:59 PM CDT [facility] Blood STRUCTURE OF LEFT UPPER LIMB / Unknown Venipuncture / Unknown 03/01/2021 3:52 PM CDT 03/01/2021 3:57 PM CDT us Lakeisha Terry MD LAB - BLOOD ORDERABLES Final R esult IN[facility] [address] [place] [id number] [place] [address] * Urine Culture Aerobic Bacterial (03/01/2021 3:52 PM CDT) Culture No Growth CHIQUI 03/02/2021 6:07 PM CDT [facility] Urine MID-STREAM URINE SPECIMEN / Unknown Non-blood Collection / Unknown 03/01/2021 3:52 PM CDT 03/01/2021 3:57 PM CDT us Lakeisha Terry MD LAB - MICRO GENERAL ORDERABLES Final Result Performing Organization Address City/[facility]/ZIP Co de Phone Number [facility] [address] [place] [address] * Adult Type and Screen (03/01/2021 3:49 PM CDT) ABO/RH(D) O POS 03/01/2021 12:00 AM CDT [facility] Antibody Screen Negative Negative 03/01/2021 12:00 AM CDT [facility] SPECIMEN EXPIRATION DATE [id number] 03/01/2021 12:00 AM CDT [facility] Blood STRUCTURE OF LEFT UPPER LIMB / Unknown Venipuncture / Unknown 03/01/2021 3:49 PM CDT 03/01/2021 3:57 PM CDT us Lakeisha Terry MD LAB - BLOOD BANK TEST ORDER Fi nal Result [facility]OD [facility] [address] [place], [place] [address] * TSH with free T4 reflex (03/01/2021 3:49 PM CDT) TSH 0.88 0.30 - 5.00 uIU/mL 03/01/2021 9:33 PM CDT [facility] Blood STRUCTURE OF LEFT UPPER LIMB / Unknown Venipuncture / Unknown 03/01/2021 3:49 PM CDT 03/01/2021 3:57 PM CDT us Lakeisha Terry MD LAB - BLOOD ORDERABLES Final R esult [facility] [address] [place] [address] * CBC with platelets (03/01/2021 3:49 PM [...] BLOOD ORDERABLES Final R esult [place] [address], [facility] * Treponema Abs w Reflex to RPR and Titer (03/01/2021 3:48 PM CDT) Treponema Antibody Total Negative Negative 03/02/2021 10:16 AM CDT [facility] Blood STRUCTURE OF LEFT UPPER LIMB / Unknown Venipuncture / Unknown 03/01/2021 3:48 PM CDT 03/01/2021 3:57 PM CDT us Lakeisha Terry MD LAB - BLOOD ORDERABLES Final R esult Performing Organization Address [facility]/ZIP Co de Phone Number [facility] [address] [place] [address] * Rubella Antibody IgG Quantitative (03/01/2021 3:48 PM CDT) Rubella Antibody IgG Positive 03/02/2021 9:03 AM CDT [facility] Blood STRUCTURE OF LEFT UPPER LIMB / Unknown Venipuncture / Unknown 03/01/2021 3:48 PM CDT 03/01/2021 3:57 PM CDT Narrative [facility] - 03/02/2021 9:03 AM CDT Negative: Absence of detectable rubella virus IgG antibodies. A negative result presumes that immunity has not been acquired. Equivocal: Suggest recollection. Positive: Considered positive for IgG antibodies to rubella virus. us Lakeisha Terry MD LAB - BLOOD ORDERABLES Final R esult Performing Organization Address City/[facility]/ZIP Co de Phone Number [facility] [address] [place] [address], [facility] [phone] * HIV Antigen Antibody Combo (03/01/2021 3:48 PM CDT) HIV Antigen Antibody Combo Negative Negative 03/01/2021 11:47 PM CDT [facility] Blood STRUCTURE OF LEFT UPPER LIMB / Unknown Venipuncture / Unknown 03/01/2021 3:48 PM CDT 03/01/2021 3:57 PM CDT Lakeisha Terry MD LAB - BLOOD ORDERABLES Final R esult Performing Organization Address [facility]/ZIP Co de Phone Number [facility] [address] [place] [address], [facility] [phone] * Hepatitis B surface antigen (03/01/2021 3:48 PM CDT) Hepatitis B Surface Antigen Nonreactive Nonreactive 03/02/2021 9:16 AM CDT [facility] Blood STRUCTURE OF LEFT UPPER LIMB / Unknown Venipuncture / Unknown 03/01/2021 3:48 PM CDT 03/01/2021 3:57 PM CDT Lakeisha Terry MD LAB - BLOOD ORDERABLES Final R esult Performing Organization Address [facility]/ZIP Co de Phone Number [facility] [address] [place] [address], [facility] [phone] documented in this encounter Visit Diagnoses Diagnosis Encounter for supervision of other normal in first trimester Family history of hypothyroidism Family history of other endocrine and metabolic diseases documented in this encounter Additional Health Concerns Infection Onset Date Last Indicated Resolved Time Rule Out COVID-19 05/02/2021 05/02/2021 05/02/2021 8:03 PM SUPERINTENDENT PIER Rule Out COVID-19 06/28/2021 06/28/2021 06/28/2021 11:19 PM SUPERINTENDENT PIER COVID-19 06/28/2021 06/28/2021 07/19/2021 11:3 9 PM SUPERINTENDENT PIER Assessment Noted Time PHQ-9 Depression Total Score: 0 11/11/19 5:01 PM CDT documented as of this encounter Care Teams Bandage Maker Relationship Specialty Start Date End Date Lakeisha Terry MD PCP - General Family Medicine 04/30/20 07/18/23 Lakesiha Terry MD XXX NO LONGER WITH FV CANNOT LOCATE XXX Assigned PCP 11/30/20 03/02/22 Kelle Espinoza MD Assigned OBGYN Provider 04/30/21 08/19/21 Kelle Disla MD [address] [place], [place] [address] Assigned OBGYN Provider 08/20/21 Neelam Lunsford MD [address] [place], [place] [address] Assigned PCP 03/03/22 02/01/23 Lakeisha Terry MD XXX NO LONGER WITH FV CANNOT LOCATE XXX Assigned PCP 02/02/23 05/24/23 Lakeisha Terry MD XXX NO LONGER WITH FV CANNOT LOCATE XXX Assigned PCP 06/01/23 07/10/23 Clinic - [address], [address] [place] [address] Assigned PCP 07/11/23 documented as of this encounter
--- OUTSIDE RECORDS SUMMARY | 2024-04-13 10:01 | XMS_ITS | Encounter Summary ---
Author Organization [place] Address [address] [place] [address] Care Team Providers Care Machine Plate Stacker Name Role Phone Lakeisha Terry MD Primary Care Provider Unavail able Lakeisha Terry MD Unavailable Unavailable Kelle Espinoza MD Unavailable Unavaila Kelle Salas MD Unavailable [phone] Neelam Lunsford MD Unavailable [phone] Lakeisha Terry MD Unavailable Unavailable Lakeisha Terry MD Unavailable Unavailable [facility] Unavailable Encounter Details Date Type Department Care Team (Late st Contact Info) Description 04/05/2021 [facility] [address] [place] [address] Lakeisha Terry MD XXX NO [...] Out COVID-19 05/02/2021 05/02/2021 05/02/2021 8:03 PM HOGSHEAD FILLER Rule Out COVID-19 06/28/2021 06/28/2021 06/28/2021 11:19 PM HOGSHEAD FILLER COVID-19 06/28/2021 06/28/2021 07/19/2021 11:3 9 PM HOGSHEAD FILLER Assessment Noted Time PHQ-9 Depression Total Score: 0 11/11/19 5:01 PM CDT documented as of this encounter Care Teams Machine Plate Stacker Relationship Specialty Start Date End Date Lakeisha Terry MD PCP - General Family Medicine 04/30/20 07/18/23 Lakeisha Terry MD XXX NO LONGER WITH FV CANNOT LOCATE XXX Assigned PCP 11/30/20 03/02/22 Kelle Espinoza MD Assigned OBGYN Provider 04/30/21 08/19/21 Kelle Disla MD [address] [place] [address] Assigned OBGYN Provider 08/20/21 Neelam Lunsford MD [address] [place] [address] Assigned PCP 03/03/22 02/01/23 Lakeisha Terry MD XXX NO LONGER WITH FV CANNOT LOCATE XXX Assigned PCP 02/02/23 05/24/23 Lakeisha Terry MD XXX NO LONGER WITH FV CANNOT LOCATE XXX Assigned PCP 06/01/23 07/10/23 [facility] - [address], [address] [place] [address] Assigned PCP 07/11/23 documented as of this encounter
--- OUTSIDE RECORDS SUMMARY | 2024-04-13 10:01 | XMS_ITS | Encounter Summary ---
Author Organization [place] Address [address] [place] [address] Care Team Providers Care Apprenticeship Training Representative Name Role Phone Lakeisha Terry MD Primary Care Provider Unavail able Lakeisha Terry MD Unavailable Unavailable Kelle Espinoza MD Unavailable Unavaila Kelle Salas MD Unavailable [phone] Neelam Lunsford MD Unavailable [phone] Lakeisha Terry MD Unavailable Unavailable Lakeisha Terry MD Unavailable Unavailable [facility] Unavailable Encounter Details Date Type Department Care Team (Late st Contact Info) Description 03/23/2021 [facility] Medical Advice [facility] [address] [place] [address] Lakeisha Terry MD XXX NO [...] Out COVID-19 05/02/2021 05/02/2021 05/02/2021 8:03 PM POWER GENERATION ENGINEER Rule Out COVID-19 06/28/2021 06/28/2021 06/28/2021 11:19 PM POWER GENERATION ENGINEER COVID-19 06/28/2021 06/28/2021 07/19/2021 11:3 9 PM POWER GENERATION ENGINEER Assessment Noted Time PHQ-9 Depression Total Score: 0 11/11/19 5:01 PM CDT documented as of this encounter Care Teams Apprenticeship Training Representative Relationship Specialty Start Date End Date Lakeisha Terry MD PCP - General Family Medicine 04/30/20 07/18/23 Lakeisha Terry MD XXX NO LONGER WITH FV CANNOT LOCATE XXX Assigned PCP 11/30/20 03/02/22 Kelle Espinoza MD Assigned OBGYN Provider 04/30/21 08/19/21 Kelle Disla MD [address] [place] [address] Assigned OBGYN Provider 08/20/21 Neelam Lunsford MD [address] [place] [address] Assigned PCP 03/03/22 02/01/23 Lakeisha Terry MD XXX NO LONGER WITH FV CANNOT LOCATE XXX Assigned PCP 02/02/23 05/24/23 Lakeisha Terry MD XXX NO LONGER WITH FV CANNOT LOCATE XXX Assigned PCP 06/01/23 07/10/23 [facility] - [address], [address] [place] [address] Assigned PCP 07/11/23 documented as of this encounter
--- OUTSIDE RECORDS SUMMARY | 2024-04-13 10:01 | XMS_ITS | Encounter Summary ---
Author Organization [facility] Address [address] [place] [address] Care Team Providers Care Engine Installer Name Role Phone Lakeisha Terry MD Primary Care Provider Unavail able Lakeisha Terry MD Primary Care Provider Unavail able Lakeisha Terry MD Unavailable Unavailable Kelle Espinoza MD Unavailable Unavaila Kelle Salas MD Unavailable [phone] Neelam Lunsford MD Unavailable [phone] Lakeisha Terry MD Unavailable Unavailable Lakeisha [...] Out COVID-19 05/02/2021 05/02/2021 05/02/2021 8:03 PM DIGITAL MEDIA BUYER Rule Out COVID-19 06/28/2021 06/28/2021 06/28/2021 11:19 PM DIGITAL MEDIA BUYER COVID-19 06/28/2021 06/28/2021 07/19/2021 11:3 9 PM DIGITAL MEDIA BUYER Assessment Noted Time PHQ-9 Depression Total Score: 11 021 1:16 AM CDT documented as of this encounter Care Teams Engine Installer Relationship Specialty Start Date End Date Lakeisha Terry MD PCP - General Family Medicine 04/30/20 07/18/23 Lakeisha Terry MD PCP - General 04/05/17 04/29/20 Lakeisha Terry MD XXX NO LONGER WITH FV CANNOT LOCATE XXX Assigned PCP 11/30/20 03/02/22 Kelle Espinoza MD Assigned OBGYN Provider 04/30/21 08/19/21 Kelle Disla MD [address] [place], [place] [address] Assigned OBGYN Provider 08/20/21 Neelam Lunsford MD [address] [place], [place] [address] Assigned PCP 03/03/22 02/01/23 Lakeisha Terry MD XXX NO LONGER WITH FV CANNOT LOCATE XXX Assigned PCP 02/02/23 05/24/23 Lakeisha Terry MD XXX NO LONGER WITH FV CANNOT LOCATE XXX Assigned PCP 06/01/23 07/10/[address] [place] [address] Assigned PCP 07/11/23 documented as of this encounter
--- OUTSIDE RECORDS SUMMARY | 2024-04-13 10:01 | XMS_ITS | Encounter Summary ---
Author Organization [facility] Address [address] [place] [address] Care Team Providers Care Manager Line Name Role Phone Lakeisha Terry MD Primary Care Provider Unavail able Lakeisha Terry MD Unavailable Unavailable Kelle Espinoza MD Unavailable Unavaila Kelle Salas MD Unavailable [phone] Neelam Lunsford MD Unavailable [phone] Lakeisha Terry MD Unavailable Unavailable Lakeisha Terry MD Unavailable Unavailable [facility] Unavailable Encounter Details Date Type Department Care Team (Late st Contact Info) Description 01/06/2021 [facility] Medical Advice [facility] [address] [place] [address] Lakeisha Terry MD XXX NO [...] Out COVID-19 05/02/2021 05/02/2021 05/02/2021 8:03 PM SEX WORKER OR ESCORT Rule Out COVID-19 06/28/2021 06/28/2021 06/28/2021 11:19 PM SEX WORKER OR ESCORT COVID-19 06/28/2021 06/28/2021 07/19/2021 11:3 9 PM SEX WORKER OR ESCORT Assessment Noted Time PHQ-9 Depression Total Score: 0 11/11/19 5:01 PM CDT documented as of this encounter Care Teams Manager Line Relationship Specialty Start Date End Date Lakeisha Terry MD PCP - General Family Medicine 04/30/20 07/18/23 Lakeisha Terry MD XXX NO LONGER WITH FV CANNOT LOCATE XXX Assigned PCP 11/30/20 03/02/22 Kelle Espinoza MD Assigned OBGYN Provider 04/30/21 08/19/21 Kelle Disla MD [address] [place] [address] Assigned OBGYN Provider 08/20/21 Neelam Lunsford MD [address] [place] [address] Assigned PCP 03/03/22 02/01/23 Lakeisha Terry MD XXX NO LONGER WITH FV CANNOT LOCATE XXX Assigned PCP 02/02/23 05/24/23 Lakeisha Terry MD XXX NO LONGER WITH FV CANNOT LOCATE XXX Assigned PCP 06/01/23 07/10/23 [facility] - [address] [place] [address] Assigned PCP 07/11/23 documented as of this encounter
--- OUTSIDE RECORDS SUMMARY | 2024-04-13 10:01 | XMS_ITS | Encounter Summary ---
Author Organization [place] Address [address] [place] [address] Care Team Providers Care Chief Petroleum Engineer Name Role Phone Lakeisha Terry MD Primary Care Provider Unavail able Lakeisha Terry MD Unavailable Unavailable Kelle Espinoza MD Unavailable Unavaila Kelle Salas MD Unavailable [phone] Neelam Lunsford MD Unavailable [phone] Lakeisha Terry MD Unavailable Unavailable Lakeisha Terry MD Unavailable Unavailable Clinic - [facility] Unavailable Encounter Details Date Type Department Care Team (Late st Contact Info) Description 06/30/2021 [facility] Medical Advice [facility] [place] [address] [facility] [address] [place] [phone] Magda Hadley, PT [address] [facility] [address] [place] [id number] Social History Tobacco Use Types Packs/Day Years [...] Coronavirus / COVID-19? Yes 06/16/2021 8:50 AM BRUSH OPERATOR documented as of this encounter Plan of Treatment Not on file documented as of this encounter Visit Diagnoses Not on filedocumented in this encounter Additional Health Concerns Infection Onset Date Last Indicated Resolved Time COVID-19 06/28/2021 06/28/2021 07/19/2021 11:3 9 PM BRUSH OPERATOR Assessment Noted Time PHQ-9 Depression Total Score: 0 11/11/19 5:01 PM CDT documented as of this encounter Care Teams Chief Petroleum Engineer Relationship Specialty Start Date End Date Lakeisha Terry MD PCP - General Family Medicine 04/30/20 07/18/23 Lakeisha Terry MD XXX NO LONGER WITH FV CANNOT LOCATE XXX Assigned PCP 11/30/20 03/02/22 Kelle Espinoza MD Assigned OBGYN Provider 04/30/21 08/19/21 Kelle Disla MD [address] [place] [address] Assigned OBGYN Provider 08/20/21 Neelam Lunsford MD [address] [place], [place] [address] Assigned PCP 03/03/22 02/01/23 Lakeisha Terry MD XXX NO LONGER WITH FV CANNOT LOCATE XXX Assigned PCP 02/02/23 05/24/23 Lakeisha Terry MD XXX NO LONGER WITH FV CANNOT LOCATE XXX Assigned PCP 06/01/23 07/10/23 [facility] - [address] [place] [address] Assigned PCP 07/11/23 documented as of this encounter
--- OUTSIDE RECORDS SUMMARY | 2024-04-13 10:02 | XMS_ITS | Clinical Summary ---
Author Organization [employer] [facility] [employer] [facility] Address [place], [place] [address] Care Team Providers Care Bilingual Inside Sales Representative Name Role Phone Isabel Samson MD Primary Care Provide r Sanam Greco MD Unavailable [phone] Allergies No known active allergies Medications Medication [...] (10/24/2022): 10/2017 ASCUS/HPV+, HPV 16/18 negative 11/2017 [place]: Normal, no biopsy 09/2018 NIL/HPV+, HPV 16/18 [...] ODERNA 50MCG/0.5ML) 12YO+ PFS 03/29/2023 COVID-19 vaccine (E[employer]m-Bio NTech 30mcg/0.3mL) PF, MDV 03/21/2021,06/24/2020,06/06/2020 Influenza Virus, [...] Procedure Name Priority Date/Time Associated Diagnosis Comments HOME SECURITY ALARM INSTALLER THIN PREP PAP SCREEN IMAGED Routine 09/26/2022 2:30 PM CDT Cervical cancer screening from Last 3 Months or Most Recently Relevant to Health Maintenance Results * HOME SECURITY ALARM INSTALLER THIN PREP PAP SCREEN IMAGED (09/26/2022 2:30 PM CDT) Case Report Gynecologic Cytology Report ? Case: [id number] ? Authorizing Provider: ??Isabel Samson, ??Collected: ? 09/26/2022 1430 ? MD ? Ordering Location: ? [facility] Received: ?09/26/2022 1524 ? First Screen: ?Stevie Clinton ? Specimen: ?HOME SECURITY ALARM INSTALLER ThinPrep Vial Screening, Cervical ? 10/23/2022 12:38 PM CDT [facility] INTERPRETATION/ RESULT NEGATIVE FOR INTRAEPITHELIAL LESION OR MALIGNANCY (NIL) (none) 10/23/2022 12:38 PM CDT [facility] IMEN ADEQUACY Satisfactory for evaluation No endocervical component seen 10/23/2022 12:38 PM CDT [facility] HPV REQUEST HPV and PAP 10/23/2022 12:38 PM CDT [facility] Date of LMP 202110/23/2022 12:38 PM CDT [facility] Last Pap Date 202110/23/2022 12:38 PM CDT [facility] Last Pap Result NIL 12:38 PM CDT [facility] Abnormal Pap or [place] Bx in last 5 years No 10/23/2022 12:38 PM CDT [facility] Menstrual Status Hysterectomy-cerv ix present 10/23/2022 12:38 PM CDT [facility] [place] Bx Done Today No 10/23/2022 12:38 PM CDT [facility] Additional Information None given 10/23/2022 12:38 PM CDT [facility] Comment: Cytology is screened at [facility] - [address], [place] [address] and [facility] - [address], [place] [address] and [facility] - [address] [place] [address] Interpreted at [facility] - [address] [place] [address] Automated Review Successful 10/23/2022 12:38 PM CDT [facility] Comment:Specimen processed s uccessfully by automated scrap drop operator device, ThinPrep Imaging System, [employer] ANCILLARY TESTING HOME SECURITY ALARM INSTALLER HPV Ordered, Please see separate report 10/23/2022 12:38 PM CDT [facility] Note The pap test is a [...] and malignant lesions. 10/23/2022 12:38 PM CDT [facility] Other (Cervical) Non-Blood / Unknown 09/26/2022 2:30 PM CDT 09/26/2022 3:24 PM CDT Isabel Samson MD PATHOLOGY/CYT OLOGY [facility] [address] [place] [address], [place] from Last 3 Months or Most Recently Relevant to Health Maintenance Advance Directives * Full Code (Latest Code Status on File) Date Activated Date Inactivated Comments 04/08/2023 2:03 PM 04/08/2023 8:41 PM Question Answer Comments Code Status Discussion: Reviewed Preferences Care Teams Bilingual Inside Sales Representative Relationship Specialty Start Date End Date Isabel Samson MD [address] [place] [address] PCP - General Family Practice 06/07/22 Sanam Greco MD [address] [place] [address] Consulting Physician Cardiology - Electrophysiology 01/23/23
--- OUTSIDE RECORDS SUMMARY | 2024-04-13 10:02 | XMS_ITS | Encounter Summary ---
Author Organization [place] Address [address] [place] [address] Care Team Providers Care Dormitory Counselor Name Role Phone Lakeisha Terry MD Primary Care Provider Unavail able Lakeisha Terry MD Primary Care Provider Unavail able Lakeisha Terry MD Unavailable Unavailable Kelle Espinoza MD Unavailable Unavaila Kelle Salas MD Unavailable [phone] Neelam Lunsford MD Unavailable [phone] Lakeisha Terry MD Unavailable Unavailable Lakeisha Terry MD Unavailable Unavailable Clinic - [facility] Unavailable Encounter Details Date Type [...] Out COVID-19 05/02/2021 05/02/2021 05/02/2021 8:03 PM CISCO CONSULTANT Rule Out COVID-19 06/28/2021 06/28/2021 06/28/2021 11:19 PM CISCO CONSULTANT COVID-19 06/28/2021 06/28/2021 07/19/2021 11:3 9 PM CISCO CONSULTANT documented as of this encounter Care Teams Dormitory Counselor Relationship Specialty Start Date End Date Lakeisha Terry MD PCP - General Family Medicine 04/30/20 07/18/23 Lakeisha Terry MD PCP - General 04/05/17 04/29/20 Lakeisha Terry MD XXX NO LONGER WITH FV CANNOT LOCATE XXX Assigned PCP 11/30/20 03/02/22 Kelle Espinoza MD Assigned OBGYN Provider 04/30/21 08/19/21 Kelle Disla MD [address] [place] [address] Assigned OBGYN Provider 08/20/21 Neelam Lunsford MD [address] [place] [address] Assigned PCP 03/03/22 02/01/23 Lakeisha Terry MD XXX NO LONGER WITH FV CANNOT LOCATE XXX Assigned PCP 02/02/23 05/24/23 Lakeisha Terry MD XXX NO LONGER WITH FV CANNOT LOCATE XXX Assigned PCP 06/01/23 07/10/[address] [place] [address] Assigned PCP 07/11/23 documented as of this encounter
--- OUTSIDE RECORDS SUMMARY | 2024-04-13 10:02 | XMS_ITS | Encounter Summary ---
Author Organization [facility] Address [address] [place] [address] Care Team Providers Care Retail Service Technician Name Role Phone Lakeisha Terry MD Primary Care Provider Unavail able Lakeisha Terry MD Primary Care Provider Unavail able Lakeisha Terry MD Unavailable Unavailable Kelle Espinoza MD Unavailable Unavaila Kelle Salas MD Unavailable [phone] Neelam Lunsford MD Unavailable [phone] Lakeisha Terry MD Unavailable Unavailable Lakeisha Terry MD Unavailable Unavailable Clinic - [facility] Unavailable Encounter Details Date Type Department Care Team (Late st Contact Info) Description 09/18/2018 [facility] [address] [place] [id number] Waleska Knight CNM [address] [place] [address] [place] [address] Social History Tobacco Use Types Packs/Day Years [...] breast and will not nurse, suggested trying rkoc-qa-rlqh for calming before trying again. If having [...] Haakaa pump. Or, could also try some gpxe-oh-hvku for calming. 5. Pumping now to build [...] good videos on the laid-back position: Www.naturalbreastfeeding.com Www.[employer] Good resources: www.[employer] The Baby Book: Dr. Bender and Yamile Beasley The Womanly Art of by [facility] For help with using baby carriers: [...] new way to soften the areola (the lac vieux around your nipple ) to make latching [...] below nipple (See pictures at this link: Https://[employer]/bf/concerns/mother/rev_pressure_soft_loli/) Illustrations by Rafa Raymundo, Reverse Pressure Softening [...] Out COVID-19 05/02/2021 05/02/2021 05/02/2021 8:03 PM DOG BEAUTICIAN Rule Out COVID-19 06/28/2021 06/28/2021 06/28/2021 11:19 PM DOG BEAUTICIAN COVID-19 06/28/2021 06/28/2021 07/19/2021 11:3 9 PM DOG BEAUTICIAN documented as of this encounter Care Teams Retail Service Technician Relationship Specialty Start Date End Date Lakeisha Terry MD PCP - General Family Medicine 04/30/20 07/18/23 Lakeisha Terry MD PCP - General 04/05/17 04/29/20 Lakeisha Terry MD XXX NO LONGER WITH [facility]V CANNOT LOCATE XXX Assigned PCP 11/30/20 03/02/22 Kelle Espinoza MD Assigned OBGYN Provider 04/30/21 08/19/21 Kelle Disla MD [address] [place] [address] Assigned OBGYN Provider 08/20/21 Neelam Lunsford MD [address] [place] [address] Assigned PCP 03/03/22 02/01/23 Lakeisha Terry MD XXX NO LONGER WITH FV CANNOT LOCATE XXX Assigned PCP 02/02/23 05/24/23 Lakeisha Terry MD XXX NO LONGER WITH FV CANNOT LOCATE XXX Assigned PCP 06/01/23 07/10/23 [facility] - [address], [address] [place] [address] Assigned PCP 07/11/23 documented as of this encounter
--- OUTSIDE RECORDS SUMMARY | 2024-04-13 10:02 | XMS_ITS | Encounter Summary ---
Author Organization [facility] Address [address] [place] [address] Care Team Providers Care Stamper Blocker Name Role Phone Lakeisha Terry MD Primary Care Provider Unavail able Lakeisha Terry MD Primary Care Provider Unavail able Lakeisha Terry MD Unavailable Unavailable Kelle Espinoza MD Unavailable Unavaila Kelle Salas MD Unavailable [phone] Neelam Lunsford MD Unavailable [phone] Lakeisha Terry MD Unavailable Unavailable Lakeisha Terry MD Unavailable Unavailable Clinic - [facility] Unavailable Encounter Details Date Type Department Care Team (Late st Contact Info) Description 10/21/2018 Records - [facility] [address] [place] [id number] Waleska Knight CN[address] [place] [address] Social History Tobacco Use Types Packs/Day Years [...] as planned, and [facility]. All Purpose Nipple Ointment (APNO), adapted from Dr. Alexandru Feng's website Most 24 hour DOZ stores are compounding pharmacies. 1-15 on this list are 24 hour DOZ stores. The cost can sometimes be between [...] latch possible. Prescription sent to: [facility] [place] [address] Phone Hours: Saturday- Saturday 9am- 5pm If the prescription All-Purpose Nipple Ointment is too expensive or difficult to obtain, you can use a fz-bu-ugfyxgwg alternative with owcf-smv-bqvuecv medications. Purchase: 1% hydrocortisone cream Antibiotic ointment [...] Sophie Protocol and All Purpose Nipple Ointment. [place] Oil Warming olive oil in mother???s fingers [...] and that dose would need to be xwxkl7h/day. The mother continues it until she is [...] IBCLC, 2007?? Revised by Alexandru Feng MD, [facility] and KATYA MastCLC, 2007, 2008?? All of [...] Out COVID-19 05/02/2021 05/02/2021 05/02/2021 8:03 PM LOBSTERMAN Rule Out COVID-19 06/28/2021 06/28/2021 06/28/2021 11:19 PM LOBSTERMAN COVID-19 06/28/2021 06/28/2021 07/19/2021 11:3 9 PM LOBSTERMAN documented as of this encounter Care Teams Stamper Blocker Relationship Specialty Start Date End Date Lakeisha Terry MD PCP - General Family Medicine 04/30/20 07/18/23 Lakeisha Terry MD PCP - General 04/05/17 04/29/20 Lakeisha Terry MD XXX NO LONGER WITH FV CANNOT LOCATE XXX Assigned PCP 11/30/20 03/02/22 Kelle Espinoza MD Assigned OBGYN Provider 04/30/21 08/19/21 Kelle Disla MD [address] [address] Assigned OBGYN Provider 08/20/21 Neelam Lunsford MD [address] [facility] [address] [place] [address] Assigned PCP 03/03/22 02/01/23 Lakeisha Terry MD XXX NO LONGER WITH FV CANNOT LOCATE XXX Assigned PCP 02/02/23 05/24/23 Lakeisha Terry MD XXX NO LONGER WITH FV CANNOT LOCATE XXX Assigned PCP 06/01/23 07/10/[address] [place] [address] Assigned PCP 07/11/23 documented as of this encounter
[2024-04-13] MEDS: DOXYCYCLINE HYCLATE 100 MG 200 MG PO (10:14)
== END 2024-04-13 10:16 | disposition home or self-care (01) ==
LOC: ED 09:56
PROVIDERS: Emergency Provider Family Medicine
DX: S00.06XA Insect bite (nonvenomous) of scalp, initial encounter (principal); W57.XXXA Bitten or stung by nonvenomous insect and other nonvenomous arthropods, initial encounter
CPT/HCPCS: 99282; 99283; 99284; A9270